=== PATIENT | female | born 1975 | race Caucasian/White ===

== ENCOUNTER 2018-12-17 12:40 | Emergency (ER) | payer OTHER ==
[~2018-12-17] VITALS: Ht 157.5 cm; Wt 47.6 kg
[~2018-12-17 12:40] MED LIST: ACET325; ALBU90OI; ALBU90OI INH; ALBU90OI6 INH; ALBU90OI61 INH; ALLEGRA ALLERGY60 MG PO; AZIT250 PO; Afrin15 ML NS; CEFU250 PO; CEPH500 PO; CIPR500 PO; CODACE30; CODGUAEL PO; CRUTCH4 USE; CYCL10 PO; ESCI20; FAMO20 PO; FLUSAL2505 IH; FLUT.05NI; HYDACE5 PO; HYDACE7.5; HYDGUAL120 PO; HYDMOR2 PO; IBUP200; IBUP400 PO; IBUP800 PO; LEVFLO500 PO; META800 PO; METO10 PO; MULVITMINE PO; Monodox100 MG PO; NAPR500; NAPR500 PO; NITR100CA PO; Naprosyn500 MG PO; Norco 5-325 Ta1 EACH PO; ONDA4 PO; ONDA4ODT MM; OXYACE5T PO; OXYACE7.5T PO; PENNAL50 PO; POLY17UD PO; PRED20 PO; PRED5 PO; PROM12.5S PR; PROM25 PO; PROM25S PR; ROFE25; RXCYCL10 PO; RXHYDACE PO; RXHYDMOR2 PO; RXOXYACE PO; RXPROACE PO; RXPROM25S PR; SERT50 PO; SUMA25 PO; ZOLP5; Zithromax250 MG PO; [UNRECOGNIZED DRUG - REMARK]
[2018-12-17 15:00] LABS: BASOPHILS ABSOLUTE AUTO 0.03 K/mm3 (0.00-0.23); BASOPHILS PERCENT AUTO 1 % (0-2); EOSINOPHILS ABSOLUTE AUTO 0.05 K/mm3 (0.00-0.68); EOSINOPHILS PERCENT AUTO 1 % (0-6); Hematocrit 38.6 % (33.0-51.0); Hemoglobin 12.2 g/dL (11.5-16.0); IMMATURE GRAN ABSOLUTE AUTO 0.01 K/mm3 (0.00-0.10); IMMATURE GRAN PERCENT AUTO 0 % (0-1); LYMPHOCYTES ABSOLUTE AUTO 2.56 K/mm3 (0.84-5.20); LYMPHOCYTES PERCENT AUTO 42 % (21-46); MONOCYTES ABSOLUTE AUTO 0.47 K/mm3 (0.16-1.47); MONOCYTES PERCENT AUTO 8 % (4-13); Mean Corpuscular HGB 29.9 pg (26.0-34.0); Mean Corpuscular HGB Conc 31.6 g/dL (31.5-36.5); Mean Corpuscular Volume 95 fL (80-100); Mean Platelet Volume 11.2 fL (9.1-12.4); NEUTROPHILS ABSOLUTE AUTO 3.05 K/mm3 (1.96-9.15); NEUTROPHILS PERCENT AUTO 49 % (41-73); Platelet Count 252 K/mm3 (150-400); RDW Coefficient Variation 11.9 % (11.7-14.2); RDW Standard Deviation 41.7 fL (35.1-46.3); Red Blood Cell Count 4.08 M/mm3 (3.80-5.20); White Blood Cell Count 6.17 K/mm3 (4.00-11.30)
[2018-12-17 15:15] LABS: Alanine Aminotransfer (ALT/SGP 20 U/L (12-78); Albumin, Blood 3.6 g/dL (3.4-5.0); Alk Phos 52 U/L (50-136); Anion Gap 8 mmol/L (6-16); Aspartate Aminotrans (AST/SGOT 16 U/L (12-37); Bilirubin, Total 0.5 mg/dL (0.1-1.0); Blood Urea Nitrogen 7 mg/dL (8-24); Bun/Creatinine Ratio 17.5 (12.0-20.0); CO2, Blood 26 mmol/L (21-32); Calcium, Blood 8.7 mg/dL (8.5-10.1); Chloride, Blood 105 mmol/L (98-108); Globulin, Blood 3.7 g/dL (2.2-4.0); Glomerular Filtration Rate >60 (60-); Glucose, Blood 94 mg/dL (70-99); Potassium, Blood 4.3 mmol/L (3.5-5.5); Sodium, Blood 139 mmol/L (136-145); Total Protein, Blood 7.3 g/dL (6.4-8.2)
[2018-12-17] MEDS ORDERED: MIRALAX17 GM PO (16:48)
[2018-12-17] MEDS ORDERED: IBUP400 PO (16:48)
== END 2018-12-17 18:00 | disposition home or self-care (01) ==
LOC: ER 12:40
PROVIDERS: Emergency Medicine
DX: K59.00 Constipation, unspecified (principal); Z88.8 Allergy status to other drugs, medicaments and biological substances; Z88.5 Allergy status to narcotic agent; Z88.0 Allergy status to penicillin; Z88.1 Allergy status to other antibiotic agents; F17.210 Nicotine dependence, cigarettes, uncomplicated
CPT/HCPCS: 74177; 80053; 84702; 85025; 96361-59; 96374-59; 96375-59; 99284-25; J1200; J2765; J7120; Q9967

== ENCOUNTER 2019-05-21 18:52 | Emergency (ER) | payer OTHER ==
[~2019-05-21] VITALS: Ht 162.6 cm; Wt 54.4 kg
[~2019-05-21 18:52] MED LIST changes: +MIRALAX17 GM PO
[2019-05-21 19:09] LABS: BASOPHILS ABSOLUTE AUTO 0.04 K/mm3 (0.00-0.23); BASOPHILS PERCENT AUTO 1 % (0-2); EOSINOPHILS ABSOLUTE AUTO 0.13 K/mm3 (0.00-0.68); EOSINOPHILS PERCENT AUTO 2 % (0-6); Hematocrit 33.7 % (33.0-51.0); IMMATURE GRAN ABSOLUTE AUTO 0.02 K/mm3 (0.00-0.10); IMMATURE GRAN PERCENT AUTO 0 % (0-1); LYMPHOCYTES ABSOLUTE AUTO 2.27 K/mm3 (0.84-5.20); LYMPHOCYTES PERCENT AUTO 28 % (21-46); MONOCYTES ABSOLUTE AUTO 0.65 K/mm3 (0.16-1.47); MONOCYTES PERCENT AUTO 8 % (4-13); Mean Corpuscular HGB 30.8 pg (26.0-34.0); Mean Corpuscular HGB Conc 32.6 g/dL (31.5-36.5); Mean Corpuscular Volume 94 fL (80-100); NEUTROPHILS ABSOLUTE AUTO 5.09 K/mm3 (1.96-9.15); NEUTROPHILS PERCENT AUTO 62 % (41-73); Platelet Count 243 K/mm3 (150-400); RDW Coefficient Variation 13.4 % (11.7-14.2); RDW Standard Deviation 46.7 fL (35.1-46.3); Red Blood Cell Count 3.57 M/mm3 (3.80-5.20)
[2019-05-21 19:25] LABS: International Normalized Ratio 0.94
[2019-05-21 19:31] LABS: Alanine Aminotransfer (ALT/SGP 20 U/L (12-78); Albumin, Blood 3.7 g/dL (3.4-5.0); Albumin/Globulin Ratio 1.2 (0.8-1.8); Alk Phos 74 U/L (50-136); Anion Gap 6 mmol/L (6-16); Aspartate Aminotrans (AST/SGOT 21 U/L (12-37); Bilirubin, Total 0.2 mg/dL (0.1-1.0); Blood Urea Nitrogen 13 mg/dL (8-24); Bun/Creatinine Ratio 27.7 (12.0-20.0); CO2, Blood 24 mmol/L (21-32); Calcium, Blood 8.7 mg/dL (8.5-10.1); Chloride, Blood 111 mmol/L (98-108); Creatinine, Blood 0.47 mg/dL (0.40-1.00); Ethanol (Alcohol), Blood, Med <3 mg/dL; Globulin, Blood 3.2 g/dL (2.2-4.0); Glomerular Filtration Rate >60 (60-); Glucose, Blood 104 mg/dL (70-99); Potassium, Blood 3.6 mmol/L (3.5-5.5); Sodium, Blood 141 mmol/L (136-145); Total Protein, Blood 6.9 g/dL (6.4-8.2)
[2019-05-21] MEDS ORDERED: ONDA4ODT MM (20:09)
[2019-05-21] MEDS ORDERED: PRAZ1 PO (20:10)
== END 2019-05-21 21:11 | disposition home or self-care (01) ==
LOC: ER 18:52
PROVIDERS: Emergency Medicine
DX: S30.0XXA Contusion of lower back and pelvis, initial encounter (principal); S10.93XA Contusion of unspecified part of neck, initial encounter; S20.229A Contusion of unspecified back wall of thorax, initial encounter; N83.11 Corpus luteum cyst of right ovary; F41.9 Anxiety disorder, unspecified; G43.909 Migraine, unspecified, not intractable, without status migrainosus; J45.909 Unspecified asthma, uncomplicated; F17.210 Nicotine dependence, cigarettes, uncomplicated; Z88.0 Allergy status to penicillin; Z88.5 Allergy status to narcotic agent; Z88.8 Allergy status to other drugs, medicaments and biological substances; Z88.1 Allergy status to other antibiotic agents; Z79.899 Other long term (current) drug therapy; V49.40XA Driver injured in collision with unspecified motor vehicles in traffic accident, initial encounter
CPT/HCPCS: 36415; 71045; 72125; 74177; 80053; 83690; 85025; 85610; 85730; 86850; 86900; 86901; 96374-59; 96375; 99284-25; G0480; J2060; J2270; Q9967

== ENCOUNTER 2020-12-30 01:30 | Emergency (ER) | payer OTHER ==
[~2020-12-30] VITALS: Ht 162.6 cm; Wt 52.2 kg
[~2020-12-30 01:30] MED LIST changes: +PRAZ1 PO
[2020-12-30 03:33] LABS: Source, Urine Clean Catch
[2020-12-30 03:35] LABS: Bilirubin, Urine Neg (Neg); Blood, Urine 2+ (Neg); Glucose Qualitative, Urine Neg (Neg); Ketones, Urine 1+ (Neg); Leukocyte Esterase, Urine 1+ (Neg); Nitrite, Urine Neg (Neg); Protein, Urine 1+ (Neg); Urobilinogen, Urine NORM (Normal)
[2020-12-30 03:36] LABS: Appearance, Urine Hazy (Clear); Color, Urine Yellow (P-Yellow)
[2020-12-30 03:43] LABS: Amorphous Heavy (0-Heavy); Bacteria Few /hpf; Mucus Light (0-Heavy); Red Blood Cells, Urine 0-2 /hpf (0-2); Squamous Epithelial Cells Few /hpf (Few)
[2020-12-30] MEDS ORDERED: CEFP200 PO (04:07)
== END 2020-12-30 04:22 | disposition home or self-care (01) ==
LOC: ER 01:30
PROVIDERS: Emergency Medicine
DX: M54.2 Cervicalgia (principal); R51.9 Headache, unspecified; M25.569 Pain in unspecified knee; J45.909 Unspecified asthma, uncomplicated; F17.210 Nicotine dependence, cigarettes, uncomplicated; Z88.8 Allergy status to other drugs, medicaments and biological substances; Z88.5 Allergy status to narcotic agent; Z88.0 Allergy status to penicillin; Z88.1 Allergy status to other antibiotic agents; Z79.899 Other long term (current) drug therapy
CPT/HCPCS: 70450; 71046; 72125; 81001; 87086; 96372; 99284-25; A9270; J1885

== ENCOUNTER → 2021-03-12 | Outpatient (CLI) | payer OTHER ==
[~2021-03-12] MED LIST changes: +CEFP200 PO; +MAGCIT300 PO
== END | disposition home or self-care (01) ==
LOC: PLD 16:45 → LAB SHORT 16:45
DX: N39.0 Urinary tract infection, site not specified (principal)
CPT/HCPCS: 87077; 87086; 87186

== ENCOUNTER 2021-03-22 15:34 | Emergency (ER) | payer OTHER ==
[~2021-03-22] VITALS: Ht 162.6 cm; Wt 46.7 kg
[~2021-03-22 15:34] MED LIST changes: -MAGCIT300 PO
[2021-03-22 16:11] LABS: BASOPHILS ABSOLUTE AUTO 0.03 K/mm3 (0.00-0.23); BASOPHILS PERCENT AUTO 1 % (0-2); EOSINOPHILS ABSOLUTE AUTO 0.07 K/mm3 (0.00-0.68); EOSINOPHILS PERCENT AUTO 1 % (0-6); Hematocrit 36.6 % (33.0-51.0); Hemoglobin 11.8 g/dL (11.5-16.0); IMMATURE GRAN ABSOLUTE AUTO 0.01 K/mm3 (0.00-0.10); IMMATURE GRAN PERCENT AUTO 0 % (0-1); LYMPHOCYTES ABSOLUTE AUTO 2.56 K/mm3 (0.84-5.20); LYMPHOCYTES PERCENT AUTO 47 % (21-46); MONOCYTES ABSOLUTE AUTO 0.46 K/mm3 (0.16-1.47); MONOCYTES PERCENT AUTO 9 % (4-13); Mean Corpuscular HGB 28.4 pg (26.0-34.0); Mean Corpuscular HGB Conc 32.2 g/dL (31.5-36.5); Mean Corpuscular Volume 88 fL (80-100); Mean Platelet Volume 10.3 fL (9.1-12.4); NEUTROPHILS ABSOLUTE AUTO 2.29 K/mm3 (1.96-9.15); NEUTROPHILS PERCENT AUTO 42 % (41-73); Platelet Count 271 K/mm3 (150-400); RDW Coefficient Variation 14.1 % (11.7-14.2); RDW Standard Deviation 45.3 fL (35.1-46.3); Red Blood Cell Count 4.16 M/mm3 (3.80-5.20); White Blood Cell Count 5.42 K/mm3 (4.00-11.30)
[2021-03-22 16:22] LABS: Alanine Aminotransfer (ALT/SGP 28 U/L (12-78); Albumin, Blood 3.9 g/dL (3.4-5.0); Albumin/Globulin Ratio 1.1 (0.8-1.8); Alk Phos 59 U/L (50-136); Anion Gap 7 mmol/L (6-16); Aspartate Aminotrans (AST/SGOT 33 U/L (12-37); Bilirubin, Total 0.4 mg/dL (0.1-1.0); Blood Urea Nitrogen 12 mg/dL (8-24); Bun/Creatinine Ratio 17.1 (12.0-20.0); CO2, Blood 24 mmol/L (21-32); Calcium, Blood 8.9 mg/dL (8.5-10.1); Chloride, Blood 102 mmol/L (98-108); Globulin, Blood 3.6 g/dL (2.2-4.0); Glomerular Filtration Rate >60 (60-); Glucose, Blood 160 mg/dL (70-99); Potassium, Blood 3.5 mmol/L (3.5-5.5); Sodium, Blood 133 mmol/L (136-145); Total Protein, Blood 7.5 g/dL (6.4-8.2)
[2021-03-22 17:38] LABS: Source, Urine Clean Catch
[2021-03-22 17:44] LABS: Bilirubin, Urine Neg (Neg); Blood, Urine 1+ (Neg); Glucose Qualitative, Urine Neg (Neg); Ketones, Urine Neg (Neg); Leukocyte Esterase, Urine 1+ (Neg); Nitrite, Urine Neg (Neg); Protein, Urine 1+ (Neg); Urobilinogen, Urine NORM (Normal)
[2021-03-22 17:50] LABS: Appearance, Urine Hazy (Clear); Color, Urine Yellow (P-Yellow)
[2021-03-22 17:51] LABS: Bacteria Mod /hpf; Red Blood Cells, Urine 0-2 /hpf (0-2); Squamous Epithelial Cells Mod /hpf (Few); White Blood Cells, Urine 0-2 /hpf (0-5)
[2021-03-22] MEDS ORDERED: MAGCIT300 PO (18:09)
== END 2021-03-22 18:21 | disposition home or self-care (01) ==
LOC: ER 15:34
PROVIDERS: Physician Assistant
DX: N39.0 Urinary tract infection, site not specified (principal); K59.00 Constipation, unspecified; F17.210 Nicotine dependence, cigarettes, uncomplicated; Z88.4 Allergy status to anesthetic agent; Z88.0 Allergy status to penicillin; Z88.1 Allergy status to other antibiotic agents; Z88.8 Allergy status to other drugs, medicaments and biological substances; Z79.899 Other long term (current) drug therapy
CPT/HCPCS: 74176; 80053; 81001; 83690; 85025; 87086; 99284-25

== ENCOUNTER 2021-07-24 19:30 | Emergency (ER) | payer OTHER ==
[~2021-07-24] VITALS: Ht 162.6 cm; Wt 49.9 kg
[~2021-07-24 19:30] MED LIST changes: +MAGCIT300 PO; +SULTRIDS PO
[2021-07-24 23:51] LABS: BASOPHILS ABSOLUTE AUTO 0.04 K/mm3 (0.00-0.23); BASOPHILS PERCENT AUTO 1 % (0-2); EOSINOPHILS ABSOLUTE AUTO 0.17 K/mm3 (0.00-0.68); EOSINOPHILS PERCENT AUTO 3 % (0-6); Hematocrit 29.4 % (33.0-51.0); Hemoglobin 9.8 g/dL (11.5-16.0); IMMATURE GRAN ABSOLUTE AUTO 0.01 K/mm3 (0.00-0.10); IMMATURE GRAN PERCENT AUTO 0 % (0-1); LYMPHOCYTES ABSOLUTE AUTO 2.35 K/mm3 (0.84-5.20); LYMPHOCYTES PERCENT AUTO 35 % (21-46); MONOCYTES ABSOLUTE AUTO 0.65 K/mm3 (0.16-1.47); MONOCYTES PERCENT AUTO 10 % (4-13); Mean Corpuscular HGB 29.2 pg (26.0-34.0); Mean Corpuscular HGB Conc 33.3 g/dL (31.5-36.5); Mean Corpuscular Volume 88 fL (80-100); Mean Platelet Volume 10.6 fL (9.1-12.4); NEUTROPHILS ABSOLUTE AUTO 3.41 K/mm3 (1.96-9.15); NEUTROPHILS PERCENT AUTO 51 % (41-73); Platelet Count 203 K/mm3 (150-400); RDW Coefficient Variation 13.2 % (11.7-14.2); Red Blood Cell Count 3.36 M/mm3 (3.80-5.20); White Blood Cell Count 6.63 K/mm3 (4.00-11.30)
[2021-07-25 00:08] LABS: Alanine Aminotransfer (ALT/SGP 31 U/L (12-78); Albumin/Globulin Ratio 0.8 (0.8-1.8); Alk Phos 57 U/L (50-136); Anion Gap 5 mmol/L (6-16); Aspartate Aminotrans (AST/SGOT 19 U/L (12-37); Bilirubin, Total 0.3 mg/dL (0.1-1.0); Blood Urea Nitrogen 7 mg/dL (8-24); Bun/Creatinine Ratio 12.2 (12.0-20.0); CO2, Blood 25 mmol/L (21-32); Calcium, Blood 9.2 mg/dL (8.5-10.1); Chloride, Blood 110 mmol/L (98-108); Creatinine, Blood 0.57 mg/dL (0.40-1.00); Globulin, Blood 3.6 g/dL (2.2-4.0); Glomerular Filtration Rate >60 (60-); Glucose, Blood 94 mg/dL (70-99); Potassium, Blood 3.2 mmol/L (3.5-5.5); Sodium, Blood 140 mmol/L (136-145); Total Protein, Blood 6.6 g/dL (6.4-8.2)
== END 2021-07-25 01:20 | disposition home or self-care (01) ==
LOC: ER 19:30
PROVIDERS: Physician Assistant
DX: R33.9 Retention of urine, unspecified (principal); N81.4 Uterovaginal prolapse, unspecified; J45.909 Unspecified asthma, uncomplicated; G43.909 Migraine, unspecified, not intractable, without status migrainosus; F17.210 Nicotine dependence, cigarettes, uncomplicated; Z88.0 Allergy status to penicillin; Z88.1 Allergy status to other antibiotic agents; Z88.8 Allergy status to other drugs, medicaments and biological substances; Z79.899 Other long term (current) drug therapy
CPT/HCPCS: 36415; 51702; 51798; 80053; 85025; 96374; 96375; 99284-25; J2270; J2405

== ENCOUNTER 2021-11-08 21:30 | Emergency (ER) | payer OTHER ==
[~2021-11-08] VITALS: Ht 162.6 cm; Wt 49.9 kg
[2021-11-09] MEDS ORDERED: IBUP400 PO (01:41)
== END 2021-11-09 02:00 | disposition home or self-care (01) ==
LOC: ER 21:30
DX: S02.31XA Fracture of orbital floor, right side, initial encounter for closed fracture (principal); S02.40DA Maxillary fracture, left side, initial encounter for closed fracture; F17.210 Nicotine dependence, cigarettes, uncomplicated; J45.909 Unspecified asthma, uncomplicated; Z88.0 Allergy status to penicillin; Z88.8 Allergy status to other drugs, medicaments and biological substances; Z88.5 Allergy status to narcotic agent; Y04.8XXA Assault by other bodily force, initial encounter
CPT/HCPCS: 70486; 72125; 99284-25

== ENCOUNTER 2022-11-29 01:13 | Emergency (ER) | payer OTHER ==
[~2022-11-29] VITALS: Ht 167.6 cm; Wt 63.5 kg
[~2022-11-29 01:13] MED LIST changes: +Bactrim Ds Tab1 EACH PO
== END 2022-11-29 02:45 | disposition home or self-care (01) ==
LOC: ER 01:13
DX: S60.212A Contusion of left wrist, initial encounter (principal); S50.12XA Contusion of left forearm, initial encounter; S54.02XA Injury of ulnar nerve at forearm level, left arm, initial encounter; F17.210 Nicotine dependence, cigarettes, uncomplicated; Y04.0XXA Assault by unarmed brawl or fight, initial encounter; Z88.5 Allergy status to narcotic agent; Z88.8 Allergy status to other drugs, medicaments and biological substances; Z88.0 Allergy status to penicillin; Z79.899 Other long term (current) drug therapy
CPT/HCPCS: 29125; 73090; 73120; 99283-25; A9270; L3917

== ENCOUNTER 2023-06-11 23:05 | Emergency (ER) | payer OTHER ==
[~2023-06-11] VITALS: Ht 162.6 cm; Wt 49.0 kg
[2023-06-12 04:18] VITALS: BP 108/70
[2023-06-14] MEDS ORDERED: CEPH500 PO (18:54)
== END 2023-06-12 06:30 | disposition home or self-care (01) ==
LOC: ER 23:05
DX: N81.4 Uterovaginal prolapse, unspecified (principal); R10.13 Epigastric pain; R11.0 Nausea; Z88.8 Allergy status to other drugs, medicaments and biological substances; Z88.0 Allergy status to penicillin; Z88.5 Allergy status to narcotic agent; Z79.899 Other long term (current) drug therapy; G43.909 Migraine, unspecified, not intractable, without status migrainosus; J45.909 Unspecified asthma, uncomplicated; F17.210 Nicotine dependence, cigarettes, uncomplicated
CPT/HCPCS: 51702; 51798; 93005; 93010; 96374-59; 96375; 96376; 99285-25; A9270; J1170; J1790

== ENCOUNTER 2023-06-13 14:21 | Emergency (ER) | payer OTHER ==
[~2023-06-13] VITALS: Ht 162.6 cm; Wt 40.8 kg
[2023-06-13 14:26] VITALS: BP 104/66
[2023-06-13 15:05] LABS: BASOPHILS ABSOLUTE AUTO 0.03 K/mm3 (0.00-0.23); BASOPHILS PERCENT AUTO 0 % (0-2); EOSINOPHILS ABSOLUTE AUTO 0.01 K/mm3 (0.00-0.68); EOSINOPHILS PERCENT AUTO 0 % (0-6); Hematocrit 31.7 % (33.0-51.0); Hemoglobin 10.4 g/dL (11.5-16.0); IMMATURE GRAN ABSOLUTE AUTO 0.06 K/mm3 (0.00-0.10); IMMATURE GRAN PERCENT AUTO 1 % (0-1); LYMPHOCYTES ABSOLUTE AUTO 0.82 K/mm3 (0.84-5.20); LYMPHOCYTES PERCENT AUTO 7 % (21-46); MONOCYTES ABSOLUTE AUTO 1.02 K/mm3 (0.16-1.47); MONOCYTES PERCENT AUTO 8 % (4-13); Mean Corpuscular HGB Conc 32.8 g/dL (31.5-36.5); Mean Corpuscular Volume 85 fL (80-100); Mean Platelet Volume 9.8 fL (9.1-12.4); NEUTROPHILS PERCENT AUTO 84 % (41-73); Platelet Count 212 K/mm3 (150-400); RDW Coefficient Variation 14.3 % (11.7-14.2); RDW Standard Deviation 44.4 fL (35.1-46.3); Red Blood Cell Count 3.71 M/mm3 (3.80-5.20); White Blood Cell Count 12.24 K/mm3 (4.00-11.30)
[2023-06-13 15:30] LABS: Albumin, Blood 2.6 g/dL (3.4-5.0); Albumin/Globulin Ratio 0.7 (0.8-1.8); Bilirubin, Total 0.5 mg/dL (0.1-1.0); Bun/Creatinine Ratio 14.7 (12.0-20.0); Calcium, Blood 8.5 mg/dL (8.5-10.1); Creatinine, Blood 0.61 mg/dL (0.40-1.00); Globulin, Blood 3.7 g/dL (2.2-4.0); Potassium, Blood 3.3 mmol/L (3.5-5.5); Total Protein, Blood 6.3 g/dL (6.4-8.2)
[2023-06-14] MEDS ORDERED: CEPH500 PO (18:54)
== END 2023-06-13 17:06 | disposition left against medical advice (07) ==
LOC: ER 14:21
PROVIDERS: Student in an Organized Health Care Education/Training Program
DX: R10.9 Unspecified abdominal pain (principal); Z53.21 Procedure and treatment not carried out due to patient leaving prior to being seen by health care provider; J45.909 Unspecified asthma, uncomplicated; Z88.8 Allergy status to other drugs, medicaments and biological substances; Z88.0 Allergy status to penicillin; Z88.5 Allergy status to narcotic agent
CPT/HCPCS: 80053; 83690; 85025

== ENCOUNTER → 2023-06-14 10:56 | Emergency (ER) | payer OTHER ==
[~2023-06-14] VITALS: Ht 162.6 cm; Wt 49.0 kg
[2023-06-14 12:17] LABS: BASOPHILS ABSOLUTE AUTO 0.03 K/mm3 (0.00-0.23); BASOPHILS PERCENT AUTO 0 % (0-2); EOSINOPHILS ABSOLUTE AUTO 0.01 K/mm3 (0.00-0.68); EOSINOPHILS PERCENT AUTO 0 % (0-6); Hematocrit 31.1 % (33.0-51.0); Hemoglobin 10.6 g/dL (11.5-16.0); IMMATURE GRAN ABSOLUTE AUTO 0.03 K/mm3 (0.00-0.10); IMMATURE GRAN PERCENT AUTO 0 % (0-1); LYMPHOCYTES PERCENT AUTO 7 % (21-46); MONOCYTES ABSOLUTE AUTO 1.08 K/mm3 (0.16-1.47); MONOCYTES PERCENT AUTO 10 % (4-13); Mean Corpuscular HGB 28.7 pg (26.0-34.0); Mean Corpuscular HGB Conc 34.1 g/dL (31.5-36.5); Mean Corpuscular Volume 84 fL (80-100); NEUTROPHILS ABSOLUTE AUTO 8.88 K/mm3 (1.96-9.15); NEUTROPHILS PERCENT AUTO 83 % (41-73); Platelet Count 196 K/mm3 (150-400); RDW Coefficient Variation 14.2 % (11.7-14.2); RDW Standard Deviation 44.3 fL (35.1-46.3); Red Blood Cell Count 3.69 M/mm3 (3.80-5.20); White Blood Cell Count 10.73 K/mm3 (4.00-11.30)
[2023-06-14 12:35] LABS: Albumin, Blood 2.5 g/dL (3.4-5.0); Albumin/Globulin Ratio 0.7 (0.8-1.8); Bilirubin, Total 0.3 mg/dL (0.1-1.0); Bun/Creatinine Ratio 19.9 (12.0-20.0); Calcium, Blood 8.3 mg/dL (8.5-10.1); Creatinine, Blood 0.6 mg/dL (0.40-1.00); Globulin, Blood 3.8 g/dL (2.2-4.0); Total Protein, Blood 6.3 g/dL (6.4-8.2)
[2023-06-14 14:53] LABS: Source, Urine Foley catheter
[2023-06-14 14:58] LABS: Appearance, Urine Cloudy (Clear); Bilirubin, Urine Neg (Neg); Blood, Urine 4+ (Neg); Color, Urine Yellow (P-Yellow); Glucose Qualitative, Urine Neg (Neg); Ketones, Urine Neg (Neg); Leukocyte Esterase, Urine 3+ (Neg); Nitrite, Urine Pos (Neg); Protein, Urine 3+ (Neg); Specific Gravity, Urine 1.005 (1.003-1.022); Urobilinogen, Urine NORM (Normal)
[2023-06-14 15:11] LABS: Bacteria Many /hpf; Red Blood Cells, Urine 50-100 /hpf (0-2); Squamous Epithelial Cells Not Seen /hpf (Few); White Blood Cells, Urine TNTC /hpf (0-5)
[2023-06-14 15:36] VITALS: BP 107/64
== END | disposition home or self-care (01) ==
LOC: ER 10:56
PROVIDERS: Emergency Medicine; Student in an Organized Health Care Education/Training Program
DX: N39.0 Urinary tract infection, site not specified (principal); R00.0 Tachycardia, unspecified; F17.210 Nicotine dependence, cigarettes, uncomplicated; Z88.0 Allergy status to penicillin; Z88.5 Allergy status to narcotic agent; Z88.8 Allergy status to other drugs, medicaments and biological substances
CPT/HCPCS: 51702; 80053; 81001; 83605; 85025; 87077; 87086; 87186; 99284; A9270; J0696; J2270; J7030

== ENCOUNTER 2023-07-08 11:15 | Inpatient (IN) | payer OTHER ==
[~2023-07-08] VITALS: Ht 162.6 cm; Wt 49.9 kg
[2023-07-08 11:49] LABS: BASOPHILS ABSOLUTE AUTO 0.04 K/mm3 (0.00-0.23); BASOPHILS PERCENT AUTO 0 % (0-2); EOSINOPHILS ABSOLUTE AUTO 0.01 K/mm3 (0.00-0.68); EOSINOPHILS PERCENT AUTO 0 % (0-6); Hematocrit 35.8 % (33.0-51.0); Hemoglobin 11.7 g/dL (11.5-16.0); IMMATURE GRAN ABSOLUTE AUTO 0.24 K/mm3 (0.00-0.10); IMMATURE GRAN PERCENT AUTO 1 % (0-1); LYMPHOCYTES ABSOLUTE AUTO 0.89 K/mm3 (0.84-5.20); LYMPHOCYTES PERCENT AUTO 4 % (21-46); MONOCYTES ABSOLUTE AUTO 0.76 K/mm3 (0.16-1.47); MONOCYTES PERCENT AUTO 4 % (4-13); Mean Corpuscular HGB 28.4 pg (26.0-34.0); Mean Corpuscular HGB Conc 32.7 g/dL (31.5-36.5); Mean Corpuscular Volume 87 fL (80-100); Mean Platelet Volume 9.9 fL (9.1-12.4); NEUTROPHILS ABSOLUTE AUTO 18.07 K/mm3 (1.96-9.15); NEUTROPHILS PERCENT AUTO 90 % (41-73); Platelet Count 243 K/mm3 (150-400); RDW Coefficient Variation 14.8 % (11.7-14.2); RDW Standard Deviation 47.1 fL (35.1-46.3); Red Blood Cell Count 4.12 M/mm3 (3.80-5.20); White Blood Cell Count 20.01 K/mm3 (4.00-11.30)
[2023-07-08 12:12] LABS: Albumin/Globulin Ratio 0.8 (0.8-1.8); Bilirubin, Total 0.8 mg/dL (0.1-1.0); Bun/Creatinine Ratio 15.5 (12.0-20.0); Calcium, Blood 8.4 mg/dL (8.5-10.1); Creatinine, Blood 0.71 mg/dL (0.40-1.00); Globulin, Blood 3.9 g/dL (2.2-4.0); Total Protein, Blood 6.9 g/dL (6.4-8.2)
[2023-07-08 13:37] LABS: Source, Urine Foley catheter
[2023-07-08 13:42] LABS: Appearance, Urine Turbid (Clear); Bilirubin, Urine Neg (Neg); Blood, Urine 4+ (Neg); Color, Urine Yellow (P-Yellow); Glucose Qualitative, Urine Neg (Neg); Ketones, Urine Neg (Neg); Leukocyte Esterase, Urine 3+ (Neg); Nitrite, Urine Pos (Neg); Protein, Urine 3+ (Neg); Specific Gravity, Urine 1.015 (1.003-1.022); Urobilinogen, Urine NORM (Normal)
[2023-07-08 14:08] LABS: Bacteria Many /hpf; Mucus Light (0-Heavy); Squamous Epithelial Cells Few /hpf (Few); White Blood Cells, Urine TNTC /hpf (0-5)
[2023-07-08 15:32] VITALS: BP 97/71
--- NOTE | 2023-07-08 16:13 | NUR ---
PT ARRIVED ON UNIT AT 1515. ORIENTED TO UNIT AND ROOM. TRANSPORTED VIA GURNEY, TRANSFERED USING SLIDE SHEET TO BED. PT A&OX4 AND LETHARGIC. PT AROUSABLE AND RESTING IN BED. NO COMPLAINTS OR CONCERNS AT THIS TIME. BED BATH GIVEN TO PT.
--- NOTE | 2023-07-08 17:48 | NUR ---
POTASSIUM CHLORIDE INFUSING CONCURRENTLY. PT VERBALIZES PAIN. IV INFUSION RATE REDUCED, PAIN STILL PRESENT. DR READ CALLED AND POTTASIUM CHANGED TO PO AFTER COMPLETION OF FIRST INFUSION DOSE.
--- NOTE | 2023-07-08 18:04 | NUR ---
SHIFT SUMMARY PT A&OX4. PT SOMNOLENT BUT ARROUSABLE WITH VERBAL STIMULATION. PT RECEIVING IV ANTIBIOTICS FOR SUSPECTED INFECTION AND IV/PO POTASSIUM FOR HYPOKALEMIA. BP LOW AND BEING TREATED WITH FLUIDS. NO ACUTE CHANGES OR DISTRESS OBSERVED ON MY SHIFT. PT LEFT IN A POSITION OF SAFETY AND COMFORT WITH BED LOCKED AND IN LOWEST POSITION, NONSKID SOCKS IN PLACE, CALL LIGHT WITHIN REACH
[2023-07-08 20:23] VITALS: BP 99/70
[2023-07-09 04:49] LABS: Hematocrit 31.8 % (33.0-51.0); Mean Corpuscular HGB 27.9 pg (26.0-34.0); Mean Corpuscular HGB Conc 31.4 g/dL (31.5-36.5); Mean Corpuscular Volume 89 fL (80-100); Mean Platelet Volume 10.3 fL (9.1-12.4); Platelet Count 201 K/mm3 (150-400); RDW Standard Deviation 48.1 fL (35.1-46.3); Red Blood Cell Count 3.59 M/mm3 (3.80-5.20); White Blood Cell Count 22.95 K/mm3 (4.00-11.30)
--- NOTE | 2023-07-09 05:06 | NUR ---
SHIFT SUMMARY PT IS A&O4, BEDREST FOR UTERINE PROLAPSE, RA, TYLENOL GIVEN X1 FOR FEVER OVERNIGHT, PRN PAIN MEDICATION GIVEN X3 FOR AB PAIN PER MAR, LUGO PATENT DRAINING TO GRAVITY, CONTINUE POC
[2023-07-09 05:07] LABS: Calcium, Blood 7.9 mg/dL (8.5-10.1); Creatinine, Blood 0.83 mg/dL (0.40-1.00); Potassium, Blood 3.7 mmol/L (3.5-5.5)
[2023-07-09 07:29] VITALS: BP 90/56
[2023-07-09 16:23] VITALS: BP 98/65
--- NOTE | 2023-07-09 17:24 | NUR ---
"Spiritual Care Visit | Pt. Request Pt. is awake in bed and welcomes my visit. Pt. is pleasant. Pt. verbalized the great care she has received in contrast to annamaria e previous visits. This ink blender listend with empathy and a calming presence. Pt. displayed evidence of gratitude and trust. Considered matters of her personal [place] and belief as well as family life review. Prayed with Pt. Pt. erbalized gratitude for the spiritual care visit."
--- NOTE | 2023-07-09 18:32 | NUR ---
SHIFT SUMMARY PT A&OX4, BEDREST FOR UTERINE PROLAPSE, LUGO CATHETER IN PLACE AND PATENT, PAIN MANAGED W/ TYLENOL, DILAUDID, AND FENTANYL. PT CONT TO C/O PAIN T/O SHIFT. PLAN FOR DISCHARGE WEDNESDAY AND PT TO FOLLOW UP W/ OUTPATIENT FOR SURGERY. CALL LIGHT WITHIN REACH AND ABLE TO MAKE NEEDS KNOWN.
[2023-07-09 20:52] VITALS: BP 112/71
[2023-07-10 05:01] LABS: Hematocrit 28.3 % (33.0-51.0); Hemoglobin 9.3 g/dL (11.5-16.0); Mean Corpuscular HGB 28.6 pg (26.0-34.0); Mean Corpuscular HGB Conc 32.9 g/dL (31.5-36.5); Mean Corpuscular Volume 87 fL (80-100); Mean Platelet Volume 10.7 fL (9.1-12.4); Platelet Count 204 K/mm3 (150-400); RDW Coefficient Variation 15.2 % (11.7-14.2); Red Blood Cell Count 3.25 M/mm3 (3.80-5.20); White Blood Cell Count 16.61 K/mm3 (4.00-11.30)
--- NOTE | 2023-07-10 05:01 | NUR ---
SHIFT SUMMARY PT IS A&O4, BEDREST FOR UTERINE PROLAPSE, RA, LUGO PATENT DRAINING TO GRAVITY, PRN PAIN MEDICATION GIVEN X3 PER MAR, NO FEVERS THIS SHIFT, CONTINUE POC
[2023-07-10 05:53] LABS: Bun/Creatinine Ratio 27.3 (12.0-20.0); Calcium, Blood 8.4 mg/dL (8.5-10.1); Creatinine, Blood 0.7 mg/dL (0.40-1.00); Potassium, Blood 3.3 mmol/L (3.5-5.5)
[2023-07-10 07:23] VITALS: BP 98/67
[2023-07-10 15:51] VITALS: BP 118/72
--- NOTE | 2023-07-10 17:11 | NUR ---
SHIFT SUMMARY PT A&OX4, BEDREST FOR UTERINE PROLAPSE, LUGO CATHETER IN PLACE AND PATENT. PAIN MANAGEMENT REGIMEN ADJUSTED BY DR. ROMERO THIS AFTERNOON, SEE MAR. PAIN MANAGED W/ DILAUDID AND NORCO. PT CONT TO C/O PAIN T/O SHIFT. OINTMENT AVAILABLE IN DEC TO KEEP UTERUS MOIST. PLAN TO CONT TO ADMINSTER ABX. CALL LIGHT WITHIN REACH AND PT ABLE TO MAKE NEEDS KNOWN.
[2023-07-10 21:12] VITALS: BP 113/73
--- NOTE | 2023-07-11 04:58 | NUR ---
SHIFT SUMMARY PATIENT A/Ox4, PLEASANT/COOPERATIVE, APPEARS FREQUENTLY ANXIOUS. STATES SHE HAS NIGHT TERRORS. C/O ONGOING INTERMITTENT PAIN TO VAGINAL AREA R/T UTERINE PROLAPSE. PAIN MANAGED WITH ROUTINE AND PRN MEDICATIONS PER MAR. LUGO CATHETER IN PLACE, PATENT DRAINING TO GRAVITY. NO ACUTE CHANGES NOTED OVERNIGHT. BED LOCKED AND IN LOWEST POSITION, CALL LIGHT WITHIN REACH.
[2023-07-11 05:00] VITALS: BP 107/71
[2023-07-11 05:00] LABS: BASOPHILS ABSOLUTE AUTO 0.02 K/mm3 (0.00-0.23); BASOPHILS PERCENT AUTO 0 % (0-2); EOSINOPHILS ABSOLUTE AUTO 0.14 K/mm3 (0.00-0.68); EOSINOPHILS PERCENT AUTO 2 % (0-6); Hematocrit 25.3 % (33.0-51.0); Hemoglobin 8.1 g/dL (11.5-16.0); IMMATURE GRAN ABSOLUTE AUTO 0.07 K/mm3 (0.00-0.10); IMMATURE GRAN PERCENT AUTO 1 % (0-1); LYMPHOCYTES ABSOLUTE AUTO 1.35 K/mm3 (0.84-5.20); LYMPHOCYTES PERCENT AUTO 18 % (21-46); MONOCYTES ABSOLUTE AUTO 0.77 K/mm3 (0.16-1.47); MONOCYTES PERCENT AUTO 10 % (4-13); Mean Corpuscular HGB 27.6 pg (26.0-34.0); Mean Corpuscular Volume 86 fL (80-100); Mean Platelet Volume 10.7 fL (9.1-12.4); NEUTROPHILS ABSOLUTE AUTO 5.28 K/mm3 (1.96-9.15); NEUTROPHILS PERCENT AUTO 69 % (41-73); Platelet Count 188 K/mm3 (150-400); RDW Coefficient Variation 15.2 % (11.7-14.2); RDW Standard Deviation 48.1 fL (35.1-46.3); Red Blood Cell Count 2.93 M/mm3 (3.80-5.20); White Blood Cell Count 7.63 K/mm3 (4.00-11.30)
[2023-07-11 05:41] LABS: Alanine Aminotransfer (ALT/SGP 38 U/L (12-78); Albumin, Blood 1.9 g/dL (3.4-5.0); Albumin/Globulin Ratio 0.5 (0.8-1.8); Alk Phos 87 U/L (50-136); Anion Gap 6 mmol/L (6-16); Aspartate Aminotrans (AST/SGOT 12 U/L (12-37); Bilirubin, Total <0.1 mg/dL (0.1-1.0); Blood Urea Nitrogen 9 mg/dL (8-24); Bun/Creatinine Ratio 14.9 (12.0-20.0); CO2, Blood 26 mmol/L (21-32); Calcium, Blood 8.5 mg/dL (8.5-10.1); Chloride, Blood 104 mmol/L (98-108); Globulin, Blood 3.9 g/dL (2.2-4.0); Glomerular Filtration Rate 111 (60-); Glucose, Blood 100 mg/dL (70-99); Potassium, Blood 3.6 mmol/L (3.5-5.5); Sodium, Blood 136 mmol/L (136-145); Total Protein, Blood 5.8 g/dL (6.4-8.2)
[2023-07-11 07:45] VITALS: BP 110/69
[2023-07-11 15:48] VITALS: BP 110/75
--- NOTE | 2023-07-11 18:15 | NUR ---
SHIFT SUMMARY PT A&OX4, BEDREST FOR UTERINE PROLAPSE, LUGO CATHETER IN PLACE AND PATENT. PT ADMITS PAIN MANAGEMENT IMPROVED THIS SHIFT. PAIN MANAGED W/ NORCO AND DILAUDID. OINTMENT APPLIED THIS SHIFT TO KEEP UTERUS MOIST. CALL LIGHT WITHIN REACH AND PT ABLE TO MAKE NEEDS KNOWN.
[2023-07-11 20:03] VITALS: BP 129/79
[2023-07-12 02:25] VITALS: BP 129/80
--- NOTE | 2023-07-12 04:20 | NUR ---
SHIFT SUMMARY: PT IS ALERT AND ORIENTED. PT IS CALM AND COOPERATIVE WITH CARE. PT IS ON BEDREST. FAMILY IN VISITING AT THE START OF THE SHIFT. PT REPORTS CONTINUING PAIN R/T UTERINE PROLAPSE, MEDICATING PER EMAR. PT DENIES NAUSEA, VOMITING, AND SOB. PT SLEPT MUCH OF THE NIGHT. NO ACUTE CHANGES OR COMPLICATIONS THIS SHIFT. BED IN LOW POSITION, CALL LIGHT WITHIN REACH. WILL CONTINUE TO MONITOR.
[2023-07-12 04:51] LABS: BASOPHILS ABSOLUTE AUTO 0.02 K/mm3 (0.00-0.23); BASOPHILS PERCENT AUTO 0 % (0-2); EOSINOPHILS ABSOLUTE AUTO 0.19 K/mm3 (0.00-0.68); EOSINOPHILS PERCENT AUTO 3 % (0-6); Hematocrit 29.6 % (33.0-51.0); Hemoglobin 9.5 g/dL (11.5-16.0); IMMATURE GRAN ABSOLUTE AUTO 0.02 K/mm3 (0.00-0.10); IMMATURE GRAN PERCENT AUTO 0 % (0-1); LYMPHOCYTES PERCENT AUTO 20 % (21-46); MONOCYTES ABSOLUTE AUTO 0.82 K/mm3 (0.16-1.47); MONOCYTES PERCENT AUTO 15 % (4-13); Mean Corpuscular HGB Conc 32.1 g/dL (31.5-36.5); Mean Corpuscular Volume 87 fL (80-100); NEUTROPHILS ABSOLUTE AUTO 3.39 K/mm3 (1.96-9.15); NEUTROPHILS PERCENT AUTO 61 % (41-73); Platelet Count 200 K/mm3 (150-400); RDW Coefficient Variation 15.3 % (11.7-14.2); RDW Standard Deviation 48.9 fL (35.1-46.3); Red Blood Cell Count 3.39 M/mm3 (3.80-5.20); White Blood Cell Count 5.54 K/mm3 (4.00-11.30)
[2023-07-12 05:18] LABS: Albumin, Blood 2.1 g/dL (3.4-5.0); Albumin/Globulin Ratio 0.5 (0.8-1.8); Bilirubin, Total 0.1 mg/dL (0.1-1.0); Bun/Creatinine Ratio 13.4 (12.0-20.0); Calcium, Blood 8.6 mg/dL (8.5-10.1); Creatinine, Blood 0.6 mg/dL (0.40-1.00); Globulin, Blood 4.1 g/dL (2.2-4.0); Potassium, Blood 3.8 mmol/L (3.5-5.5); Total Protein, Blood 6.2 g/dL (6.4-8.2)
[2023-07-12 07:45] VITALS: BP 115/75
[2023-07-12 13:35] VITALS: BP 136/71
--- NOTE | 2023-07-12 14:23 | NUR ---
CALLED DR ROMERO- PT HAS RECIEVED ALL MEDS FOR BM, HOWEVER SHE HAS STILL HAD NO STOOLS, EVEN AFTER THE ENEMA, ONLY THE ENEMAS WAS PRODUCED IN RETURN. CALLED DR ROMERO PT ABDOMEN IS LARGER AND MORE FIRM, SHE IS C/O INCREASED PAIN WELL.
[2023-07-12 15:50] VITALS: BP 124/80
[2023-07-12 16:12] VITALS: BP 116/70
--- NOTE | 2023-07-12 19:41 | NUR ---
SHIFT SUMMARY- CALLED DR ROEMRO THIS EVENING, ENEMA WAS NOT INFUSING IT SHOULD IT WAS RUNNING BACK IT WAS BEING ADMINISTERED. POTENTIALLY MUCH 1/3 OF THE ENEMA MAY HAVE BEEN RETAINED INTENDED. ORDER TO HOLD THE SECOND ENEMA. PT DID HAVE A LARGE AMOUNT OF FLATUS PASSED ABOUT A HALF AN HOUR AFTER THE ENEMA. NO STOOL. BED CHANGE PERFORMED TO CLEAN ALL THE MEDICATION FROM THE LINNENS. PT IN BED, MEDICATED FOR PAIN AND STATES IT "SEEMS TO BE WORKING" PAIN IS MANAGED BETTER THIS EVENING WHEN COMPARED TO LATE THIS AFTERNOON. PASSING THE FLATTUS SEEMED TO HELP A LOT. PT IN BED, CALL LIGHT IN REACH NO S&S OF DISTRESS NOTED, BEDSIDE REPORT COMPLETED WITH NIGHT RN, NO S&S OF DISTRESS NOTED. PT ABLE TO LAUGH AND TALK WITH STAFF.
[2023-07-12 20:34] VITALS: BP 149/91
[2023-07-13 02:42] VITALS: BP 128/87
[2023-07-13 05:09] LABS: BASOPHILS ABSOLUTE AUTO 0.02 K/mm3 (0.00-0.23); BASOPHILS PERCENT AUTO 0 % (0-2); EOSINOPHILS ABSOLUTE AUTO 0.08 K/mm3 (0.00-0.68); EOSINOPHILS PERCENT AUTO 2 % (0-6); Hematocrit 30.9 % (33.0-51.0); IMMATURE GRAN ABSOLUTE AUTO 0.01 K/mm3 (0.00-0.10); IMMATURE GRAN PERCENT AUTO 0 % (0-1); LYMPHOCYTES ABSOLUTE AUTO 1.08 K/mm3 (0.84-5.20); LYMPHOCYTES PERCENT AUTO 23 % (21-46); MONOCYTES ABSOLUTE AUTO 0.49 K/mm3 (0.16-1.47); MONOCYTES PERCENT AUTO 11 % (4-13); Mean Corpuscular HGB 27.8 pg (26.0-34.0); Mean Corpuscular HGB Conc 32.4 g/dL (31.5-36.5); Mean Corpuscular Volume 86 fL (80-100); Mean Platelet Volume 10.1 fL (9.1-12.4); NEUTROPHILS ABSOLUTE AUTO 2.98 K/mm3 (1.96-9.15); NEUTROPHILS PERCENT AUTO 64 % (41-73); Platelet Count 227 K/mm3 (150-400); RDW Coefficient Variation 15.2 % (11.7-14.2); RDW Standard Deviation 48.4 fL (35.1-46.3); White Blood Cell Count 4.66 K/mm3 (4.00-11.30)
[2023-07-13 05:39] LABS: Albumin, Blood 2.3 g/dL (3.4-5.0); Albumin/Globulin Ratio 0.5 (0.8-1.8); Bilirubin, Total 0.2 mg/dL (0.1-1.0); Bun/Creatinine Ratio 13.2 (12.0-20.0); Calcium, Blood 8.9 mg/dL (8.5-10.1); Creatinine, Blood 0.61 mg/dL (0.40-1.00); Globulin, Blood 4.2 g/dL (2.2-4.0); Potassium, Blood 4.1 mmol/L (3.5-5.5); Total Protein, Blood 6.5 g/dL (6.4-8.2)
--- NOTE | 2023-07-13 06:25 | NUR ---
SHIFT SUMMARY PATIENT A/Ox4, PLEASANT AND COOPERATIVE. C/O ONGOING INTERMITTENT PAIN TO LOWER ABD, R/T UTERINE PROLAPSE. PAIN MANAGED WITH ROUTINE AND PRN MEDICATIONS PER MAR. LUGO CATHETER IN PLACE, PATENT DRAINING TO GRAVITY, CLEAR YELLOW URINE. NO ACUTE CHANGES NOTED OVERNIGHT. BED LOCKED AND IN LOWEST POSITION, CALL LIGHT WITHIN REACH.
[2023-07-13 07:23] VITALS: BP 132/99
[2023-07-13 17:54] VITALS: BP 127/76
--- NOTE | 2023-07-13 18:20 | NUR ---
SHIFT SUMMARY PT A&OX4. VSS. PT ENCOURAGED TO AMBULATE TO PROMOTE GI MOTILITY. PT DECLINES DURING SHIFT DUE TO UNCONTROLLED PAIN AND SLEEPING. NO ACUTE CHANGES TO PT CONDITION, BM PRODUCED THIS MORNING. PT LEFT IN A POSITION OF SAFETY WITH BED LOCKED AND IN LOWEST POSITION, NONSKID SOCKS IN PLACE, BED RAILS RAISED X2, FLOOR CLEAR OF DEBRIS, AND CALL LIGHT WITHIN REACH.
--- NOTE | 2023-07-14 04:20 | NUR ---
SHIFT SUMMARY PATIENT A/Ox4, BRIGHT AFFECT AT SHIFT CHANGE, SMILING. CONTINUES TO STRUGGLE WITH FREQUENT INTENSE PAIN TO LOWER ABD, R/T UTERINE PROLAPSE. PAIN MANAGED WITH ROUTINE AND PRN MEDICATIONS PER DEC. LUGO CATHETER IN PLACE, PATENT DRAINING TO GRAVITY, CLEAR LIGHT YELLOW URINE. NO ACUTE CHANGES NOTED OVERNIGHT. BED LOCKED AND IN LOWEST POSITION, CALL LIGHT WITHIN REACH.
[2023-07-14 04:31] VITALS: BP 122/95
[2023-07-14 05:04] LABS: BASOPHILS ABSOLUTE AUTO 0.03 K/mm3 (0.00-0.23); BASOPHILS PERCENT AUTO 1 % (0-2); EOSINOPHILS PERCENT AUTO 3 % (0-6); Hemoglobin 9.5 g/dL (11.5-16.0); IMMATURE GRAN ABSOLUTE AUTO 0.03 K/mm3 (0.00-0.10); IMMATURE GRAN PERCENT AUTO 1 % (0-1); LYMPHOCYTES ABSOLUTE AUTO 1.64 K/mm3 (0.84-5.20); LYMPHOCYTES PERCENT AUTO 27 % (21-46); MONOCYTES ABSOLUTE AUTO 0.74 K/mm3 (0.16-1.47); MONOCYTES PERCENT AUTO 12 % (4-13); Mean Corpuscular HGB 28.1 pg (26.0-34.0); Mean Corpuscular HGB Conc 32.8 g/dL (31.5-36.5); Mean Corpuscular Volume 86 fL (80-100); Mean Platelet Volume 9.9 fL (9.1-12.4); NEUTROPHILS ABSOLUTE AUTO 3.39 K/mm3 (1.96-9.15); NEUTROPHILS PERCENT AUTO 56 % (41-73); Platelet Count 260 K/mm3 (150-400); RDW Coefficient Variation 14.9 % (11.7-14.2); RDW Standard Deviation 47.3 fL (35.1-46.3); Red Blood Cell Count 3.38 M/mm3 (3.80-5.20); White Blood Cell Count 6.03 K/mm3 (4.00-11.30)
[2023-07-14 05:29] LABS: Bun/Creatinine Ratio 15.7 (12.0-20.0); Calcium, Blood 8.4 mg/dL (8.5-10.1); Creatinine, Blood 0.64 mg/dL (0.40-1.00); Potassium, Blood 4.1 mmol/L (3.5-5.5)
[2023-07-14 07:08] VITALS: BP 113/72
[2023-07-14 14:49] VITALS: BP 128/79
--- NOTE | 2023-07-14 18:53 | NUR ---
SHIFT SUMMARY A&O X 4, VSS. PT C/O LOW ABD PAIN THROUGHOUT SHIFT WITH MOD RELIEF STATED WITH PAIN MEDS PER EMAR. THIS AFTERNOON PT C/O OF GAS PAINS. MEDICATED WITH PAIN MEDS WITH MOD RELIEF STATED BY PT. PT REFUSED EVENING DOSE OF LACTULOSE STATING IT CAUSES THE GAS PAINS. IS PLEASANT & COOPERATIVE WITH ALL CARE. IS INDEPENDENT FOR BSC USE. HAS RESTED QUIETLY IN DARK ROOM. CAN BE HEARD MOANING IN THE ROOM, PT STATES ITS FROM THE GAS MOVING. F/C WITH LIGHT YELLOW URINE, IS INTACT & PATENT TO GRAVITY DRNG.
[2023-07-14 20:54] VITALS: BP 132/79
[2023-07-15 01:51] VITALS: BP 138/76
--- NOTE | 2023-07-15 04:11 | NUR ---
SHIFT SUMMERY. PT AT THIS TIME RESTING IN BED. PT HAS IN LUGO CATH. PT LAST NOC HAD LG BM AND WAS GIVEN A SHOWER DUE TO STOOL ON PROLAPSED UTERUS. PT BACK TO BED CLEAN CLOTHING PLACED ON PT AND PT MEDICATED FOR PAIN. PT HAS ANOTHER 2 LIQ BMS AFTER TAHT AND WAS AGAIN CLEANDED UP PT WAS STILL VERY PAIN FULL AND MEDICATED WITH DILOTED. PT GIVENPO PAIN MED AT 0100 TO GET BACK ON SCEDULAL. PT NOW SEEMS TO BE RESTING WELL. CALL LIGHT IN REACH.
[2023-07-15 05:10] LABS: Hematocrit 29.3 % (33.0-51.0); Hemoglobin 9.5 g/dL (11.5-16.0); Mean Corpuscular HGB 27.9 pg (26.0-34.0); Mean Corpuscular HGB Conc 32.4 g/dL (31.5-36.5); Mean Corpuscular Volume 86 fL (80-100); Platelet Count 279 K/mm3 (150-400); RDW Standard Deviation 47.4 fL (35.1-46.3); Red Blood Cell Count 3.41 M/mm3 (3.80-5.20); White Blood Cell Count 5.65 K/mm3 (4.00-11.30)
[2023-07-15 05:43] LABS: Bun/Creatinine Ratio 14.3 (12.0-20.0); Calcium, Blood 8.2 mg/dL (8.5-10.1); Creatinine, Blood 0.63 mg/dL (0.40-1.00); Potassium, Blood 4.2 mmol/L (3.5-5.5)
[2023-07-15 06:13] LABS: BASOPHILS ABSOLUTE MAN 0.05 K/mm3 (0.00-0.23); BASOPHILS PERCENT MAN 1 % (0-2); EOSINOPHILS ABSOLUTE MAN 0.05 K/mm3 (0.00-0.68); EOSINOPHILS PERCENT MAN 1 % (0-6); LYMPHOCYTES ABSOLUTE MAN 1.63 K/mm3 (0.84-5.20); LYMPHOCYTES PERCENT MAN 29 % (21-46); MONOCYTES ABSOLUTE MAN 0.62 K/mm3 (0.16-1.47); MONOCYTES PERCENT MAN 11 % (4-13); NEUTROPHILS ABSOLUTE MAN 3.27 K/mm3 (1.96-9.15); SEG NEUTROPHILS PERCENT MAN 58 % (41-73); TOTAL CELLS COUNTED 100
[2023-07-15 07:34] VITALS: BP 126/84
--- NOTE | 2023-07-15 12:27 | NUR ---
Pt. is awake in bed and welcomes my visit. Pt. is pleasant and verbalizes interest in our visit. Facilitate a more extended life review and consider matters of [place] and belief. Pt. displays evidence of emotional fragility at times, but also displays evidence of confidant trust during the visit. Consider matters of homelife and Pt. safety. Pt. verbalizes the story of a staff member who provided the Pt. with a vase for her dumont. Pt. verbalized gratitude for his simple but profound gesture. This head pastry chef moved her dumont to the window where they could get some sun. Prayed with Pt. Pt. verblaized gratitude for the extended spiritual care visit. At Pts. request, this head pastry chef provided the Pt. with a copy of the [place] Testam[place] and Psalms. Pt. verbalized gratitude for the spiriual care visit and requested this head pastry chef to return.
[2023-07-15 16:23] VITALS: BP 134/80
--- NOTE | 2023-07-15 19:13 | NUR ---
SHIFT SUMMARY: PT A/O X 4, STANDBY ASSIST. PLEASANT AND COOPERATIVE. PT PAIN MANAGED TODAY WELL. PT REPORTS ORAL DILAUDID GAVE BETTER PAIN CONTROL THEAN THE IV DOSE. PT UTURUS CONTINUES TO PROTRUDE AND IS PINK AND MOIST. PT HAD BM TODAY. HAS GOOD APPETITE. HAD VISITORS THROUGHOUT THE DAY AND SMILED WITH INTERACTION. NO CONCERNS AT SHIFT END FROM PT.
[2023-07-15 19:49] VITALS: BP 133/84
--- NOTE | 2023-07-16 02:44 | NUR ---
SHIFT SUMMERY, PT RESTING IN BED, PT HAD SHOWER ON DAY SHIFT. PT C/O GAS PAIN, PT HAD TAKEN MORE LACTOLOSE AND HAD BM AGAIN DURING DAYS. PT MEDICATED FOR PAIN AT SCEDUALED TIME. GVEL PT CRACKERS TO EAT WITH HER PAIN MED. PT NOW TRYING TO GO BACK TO SLEEP. CALL LIGHT IN REACH.
[2023-07-16 03:44] VITALS: BP 143/90
[2023-07-16 04:56] LABS: Hematocrit 28.6 % (33.0-51.0); Hemoglobin 9.2 g/dL (11.5-16.0); Mean Corpuscular HGB 27.8 pg (26.0-34.0); Mean Corpuscular HGB Conc 32.2 g/dL (31.5-36.5); Mean Corpuscular Volume 86 fL (80-100); Mean Platelet Volume 9.9 fL (9.1-12.4); Platelet Count 336 K/mm3 (150-400); RDW Standard Deviation 47.4 fL (35.1-46.3); Red Blood Cell Count 3.31 M/mm3 (3.80-5.20); White Blood Cell Count 5.13 K/mm3 (4.00-11.30)
[2023-07-16 05:33] LABS: BASOPHILS PERCENT MAN 0 % (0-2); EOSINOPHILS ABSOLUTE MAN 0.15 K/mm3 (0.00-0.68); EOSINOPHILS PERCENT MAN 3 % (0-6); LYMPHOCYTES % ATYPICAL MANUAL 1 % (0-0); LYMPHOCYTES PERCENT MAN 40 % (21-46); MONOCYTES ABSOLUTE MAN 0.41 K/mm3 (0.16-1.47); MONOCYTES PERCENT MAN 8 % (4-13); NEUTROPHILS ABSOLUTE MAN 2.46 K/mm3 (1.96-9.15); SEG NEUTROPHILS PERCENT MAN 48 % (41-73); TOTAL CELLS COUNTED 100
[2023-07-16 05:39] LABS: Bun/Creatinine Ratio 16.6 (12.0-20.0); Calcium, Blood 8.5 mg/dL (8.5-10.1); Creatinine, Blood 0.54 mg/dL (0.40-1.00); Potassium, Blood 3.8 mmol/L (3.5-5.5)
[2023-07-16 07:34] VITALS: BP 138/88
[2023-07-16 16:10] VITALS: BP 147/88
--- NOTE | 2023-07-16 18:20 | NUR ---
Pt. is awake in bed and welcomes my visit. Pt. is listening to holiness music and sobbing when I arrive. My objective is to re-establish rapport, to identify what is causing the Pt. to respond emotionally, and to be a calming yet joyful presence. Through guided questions was able to assess some of the pain in the Pts. past. Listened with empathy as the Pt. verbalized some of her life story. Offered pastoral primary counselor and prayed with Pt. Pt. verbalized significnace and gratitude of our spiritual care visits.
--- NOTE | 2023-07-16 18:29 | NUR ---
SHIFT SUMMARY: KATHERINE IS A&OX4. VSS, NO ACUTE EVENTS THIS SHIFT. SHE IS TOLERATING PO INTAKE WELL AND REPORTS IMPROVEMENT IN SYMPTOMS OF PAIN, NAUSEA, AND ABDOMINAL DISCOMFORT SINCE THE PESSARY WAS PLACED THIS AFTERNOON BY DR. ALVARENGA. DR. ALVARENGA GAVE VERBAL ORDER FOR PT'S LUGO TO REMAIN IN PLACE FOR 24-HOURS TO ENSURE PT IS ABLE TO HAVE BOWEL MOVEMENTS. AFTER 24-HOURS AND SUCCESSFUL BM, REMOVE LUGO. DR. ROMERO GAVE VERBAL ORDER FOR PT TO BE MONITORED FOR 24 HOURS AFTER LUGO IS REMOVED TO ENSURE PT IS ABLE TO URINATE WITHOUT DIFFICULTY. PT WALKED THE HALLS WITH THERAPY TODAY UNASSISTED. IV TO R WRIST PATENT. SHE IS SITTING UP IN BED WITH THE CALL LIGHT IN REACH. WCTM UNTIL REPORT IS GIVEN TO PHARMACY SERVICE ASSOCIATE RN.
[2023-07-16 19:11] VITALS: BP 133/97
--- NOTE | 2023-07-17 02:48 | NUR ---
SHIFT DIVINAY, PT RESTING IN BED, PT TOOK HS MEDS AND THEN WENT BACK TO SLEEP. ABOUT MN PT AWOKE AND WAS GIVEN HER SCEDUALED PAIN MEDS AND PT REQUESTED A SNACK. PT AT THIS TIME IS SEEMING TO BE SLEEPING WELL. CALL LIGHT IN REACH.
[2023-07-17 03:17] VITALS: BP 105/70
[2023-07-17 05:47] LABS: BASOPHILS ABSOLUTE AUTO 0.04 K/mm3 (0.00-0.23); BASOPHILS PERCENT AUTO 1 % (0-2); EOSINOPHILS ABSOLUTE AUTO 0.33 K/mm3 (0.00-0.68); EOSINOPHILS PERCENT AUTO 6 % (0-6); Hematocrit 32.8 % (33.0-51.0); Hemoglobin 10.5 g/dL (11.5-16.0); IMMATURE GRAN ABSOLUTE AUTO 0.04 K/mm3 (0.00-0.10); IMMATURE GRAN PERCENT AUTO 1 % (0-1); LYMPHOCYTES ABSOLUTE AUTO 2.37 K/mm3 (0.84-5.20); LYMPHOCYTES PERCENT AUTO 41 % (21-46); MONOCYTES ABSOLUTE AUTO 0.55 K/mm3 (0.16-1.47); MONOCYTES PERCENT AUTO 10 % (4-13); Mean Corpuscular HGB 27.3 pg (26.0-34.0); Mean Corpuscular Volume 85 fL (80-100); Mean Platelet Volume 9.8 fL (9.1-12.4); NEUTROPHILS ABSOLUTE AUTO 2.47 K/mm3 (1.96-9.15); NEUTROPHILS PERCENT AUTO 43 % (41-73); Platelet Count 438 K/mm3 (150-400); RDW Coefficient Variation 15.2 % (11.7-14.2); RDW Standard Deviation 47.1 fL (35.1-46.3); Red Blood Cell Count 3.84 M/mm3 (3.80-5.20)
[2023-07-17 06:14] LABS: Bun/Creatinine Ratio 25.5 (12.0-20.0); Calcium, Blood 9.2 mg/dL (8.5-10.1); Creatinine, Blood 0.71 mg/dL (0.40-1.00); Potassium, Blood 4.6 mmol/L (3.5-5.5)
[2023-07-17 07:26] VITALS: BP 122/84
[2023-07-17 17:10] VITALS: BP 120/79
--- NOTE | 2023-07-17 18:13 | NUR ---
PT REPORTS URINARY LEAKAGE, PAD IN PLACE. PT ABLE TO VOID 100 CC, POST VOID BLADDER SCAN NEGATIVE. ENCOURAGED PT TO INCREASE PO WATER INTAKE, PT STATES SHE HAS NOT DRANK MUCH TODAY.
--- NOTE | 2023-07-17 19:12 | NUR ---
SHIFT SUMMARY: KATHERINE IS A&OX4. VSS, NO ACUTE EVENTS THIS SHIFT. PT IS INDEPENDENT IN THE ROOM AND WITH ADLS. IV TO R WRIST POSITIONAL BUT PATENT. SHE IS TOLERATING PO INTAKE WELL, WAS MEDICATED ONCE FOR NAUSEA, AND HAS BEEN ABLE TO HAVE A BM WITH THE PESSARY IN PLACE WELL URINATE POST LUGO REMOVAL. SHE IS SITTING UP IN BED WITH THE CALL LIGHT IN REACH. REPORT WAS GIVEN TO DEVIL TENDER RN.
[2023-07-17 19:28] VITALS: BP 124/80
[2023-07-18 04:09] VITALS: BP 123/77
--- NOTE | 2023-07-18 05:51 | NUR ---
EOS: PATIENT HAD SOME MINOR ISSUES WITH RETENTIONS WAS FINALLY ABLE TO VOID SELF, DECLINED STRAIGHT CATH WAS 476 VOIDED 300 OUT, ENDORSED AND EDUCATED ON BLADDER TRAINING. PATIENT AGREEABLE SOME INCREAED PAIN VEE DILAUDED PRN MEDICATION WITH DISTENTION AND RETENTION. PATIENT CURRENTLY SLEEPING VSS. NO CONCERNS FROM THIS RN AT THIS TIME A/OX4. DENIES CHEST PAIN PRESSURE OR SOB.
[2023-07-18 08:15] VITALS: BP 139/90
--- NOTE | 2023-07-18 09:00 | NUR ---
pt sitting up in bed eating breakfast, she is very talkative, but becomes tearful easily, a/ox4, pleasant and cooperative with care, follows commands well, reports pain this am, her 0600 pain med was held as she was sleeping, this was given, lungs are clear t/o, resp even and unlabored, no cough noted, hrr, no edema noted, ppp+2, cap refill <3sec, vs stable, afebrile, iv site is clear and patent, btx4, abd flat soft nontender, voids without diff, skin c/w/d, maew, kelly, call light in reach.
[2023-07-18 15:43] VITALS: BP 120/81
--- NOTE | 2023-07-18 18:32 | NUR ---
pt has been up out in halls has had a bm this am and has voided and reports it's getting easier, has had pain but nothing out of control, call light in reach.
[2023-07-18 20:52] VITALS: BP 142/89
[2023-07-19 04:02] VITALS: BP 126/81
--- NOTE | 2023-07-19 06:35 | NUR ---
Rn summary: Patient is alert and oriented. She was a little tearful at the beginning of shift. She is worried about her surgery next week. She states it is the first time she has gone through something like this alone. Patient feelings acknowleged. She states she is much improved. Patient has been voiding adequately. Patient is having less pain, may not need scheduled pain meds. Her IV was tender and not patent, IV DC'd. Patient is independant in room. Has rested well. Call light in reach.
[2023-07-19 07:29] VITALS: BP 121/81
[2023-07-19] MEDS ORDERED: Acetaminophen650 M1 PO (11:40)
[2023-07-19 11:41] LABS: SARS-Cov-2 (COVID-19) PCR, MMC NEGATIVE (NEGATIVE)
[2023-07-19] MEDS ORDERED: CEFTRIAXON1 GM/50 M1 IV (11:43)
[2023-07-19] MEDS ORDERED: DOCUZEN 8.6-501 EACH PO (11:44)
[2023-07-19] MEDS ORDERED: ENOX40I SC (11:46)
[2023-07-19] MEDS ORDERED: Estrace Vagin42.5 GM VAG (11:47)
[2023-07-19] MEDS ORDERED: HYDROCODONE-AC1 EA16 PO (11:48)
[2023-07-19] MEDS ORDERED: LACT10SY PO (11:49)
[2023-07-19] MEDS ORDERED: DULCOLAX400 MG/5 M PO (11:52)
[2023-07-19] MEDS ORDERED: ONDA4ODT MM (11:52)
[2023-07-19] MEDS ORDERED: MIRALAX17 GM PO (11:52)
[2023-07-19] MEDS ORDERED: CURAD PETROLEUM5 GM TOP (11:54)
[2023-07-19] MEDS ORDERED: SODIUM CHLORID100 ML IV (11:54)
--- NOTE | 2023-07-19 14:51 | NUR ---
PT DISCHARGED FROM THE UNIT. POWERGLIDE PLACED FOR ABX USE IN SNF. REPORT CALLED. PT LEFT VIA WC
== END 2023-07-19 13:55 | DRG 872 ==
LOC: ER 11:15 → MEDS 11:16 → ENPENDDIS 07-19 10:08 → MEDS 07-19 13:55
PROVIDERS: Emergency Medicine; Hospitalist; Internal Medicine; ADMIT Internal Medicine
DX: A41.51 Sepsis due to Escherichia coli [E. coli] (principal); N13.6 Pyonephrosis; N32.0 Bladder-neck obstruction; G43.909 Migraine, unspecified, not intractable, without status migrainosus; J44.9 Chronic obstructive pulmonary disease, unspecified; M54.9 Dorsalgia, unspecified; K40.90 Unilateral inguinal hernia, without obstruction or gangrene, not specified as recurrent; R65.20 Severe sepsis without septic shock; N81.4 Uterovaginal prolapse, unspecified; G89.29 Other chronic pain; F41.9 Anxiety disorder, unspecified; F43.10 Post-traumatic stress disorder, unspecified; D64.9 Anemia, unspecified; E87.6 Hypokalemia; Z87.442 Personal history of urinary calculi; Z87.820 Personal history of traumatic brain injury; Z90.49 Acquired absence of other specified parts of digestive tract; Z98.51 Tubal ligation status; Z90.89 Acquired absence of other organs; Z98.890 Other specified postprocedural states; Z87.891 Personal history of nicotine dependence; Z88.0 Allergy status to penicillin; Z88.8 Allergy status to other drugs, medicaments and biological substances; K59.09 Other constipation; Z11.52 Encounter for screening for COVID-19
CPT/HCPCS: 36415; 51702; 74176; 74177; 80048; 80053; 81001; 83605; 84443; 85025; 85027; 87040; 87077; 87086; 87186; 96365; 96375; 97110; 97116; 97162; 97165; 97530; 97535; 99285-25; A9270; J0696; J1170; J1650; J1885; J2405; J3010; J3480; J7030; J7050; Q9967; U0002

== ENCOUNTER 2023-08-14 20:56 | Inpatient (IN) | payer OTHER ==
[~2023-08-14] VITALS: Ht 162.6 cm; Wt 50.0 kg
[~2023-08-14 20:56] MED LIST changes: +Acetaminophen650 M1 PO; +CEFTRIAXON1 GM/50 M1 IV; +CURAD PETROLEUM5 GM TOP; +DOCUZEN 8.6-501 EACH PO; +DULCOLAX400 MG/5 M PO; +ENOX40I SC; +Estrace Vagin42.5 GM VAG; +HYDROCODONE-AC1 EA16 PO; +LACT10SY PO; +SODIUM CHLORID100 ML IV
[2023-08-14 23:06] LABS: BASOPHILS ABSOLUTE AUTO 0.03 K/mm3 (0.00-0.23); BASOPHILS PERCENT AUTO 0 % (0-2); EOSINOPHILS PERCENT AUTO 0 % (0-6); Hematocrit 27.1 % (33.0-51.0); Hemoglobin 9.1 g/dL (11.5-16.0); IMMATURE GRAN ABSOLUTE AUTO 0.29 K/mm3 (0.00-0.10); IMMATURE GRAN PERCENT AUTO 1 % (0-1); LYMPHOCYTES ABSOLUTE AUTO 1.13 K/mm3 (0.84-5.20); LYMPHOCYTES PERCENT AUTO 5 % (21-46); MONOCYTES ABSOLUTE AUTO 1.56 K/mm3 (0.16-1.47); MONOCYTES PERCENT AUTO 7 % (4-13); Mean Corpuscular HGB 28.4 pg (26.0-34.0); Mean Corpuscular HGB Conc 33.6 g/dL (31.5-36.5); Mean Corpuscular Volume 85 fL (80-100); Mean Platelet Volume 11.6 fL (9.1-12.4); NEUTROPHILS ABSOLUTE AUTO 19.86 K/mm3 (1.96-9.15); NEUTROPHILS PERCENT AUTO 87 % (41-73); Platelet Count 178 K/mm3 (150-400); RDW Coefficient Variation 14.8 % (11.7-14.2); RDW Standard Deviation 46.2 fL (35.1-46.3); White Blood Cell Count 22.87 K/mm3 (4.00-11.30)
[2023-08-14 23:22] LABS: Alanine Aminotransfer (ALT/SGP 23 U/L (12-78); Albumin, Blood 2.3 g/dL (3.4-5.0); Albumin/Globulin Ratio 0.6 (0.8-1.8); Alk Phos 60 U/L (50-136); Anion Gap 8 mmol/L (6-16); Aspartate Aminotrans (AST/SGOT 23 U/L (12-37); Bilirubin, Direct <0.1 mg/dL (0.0-0.3); Bilirubin, Indirect Unable to Calculate mg/dL (0.1-0.7); Bilirubin, Total 0.3 mg/dL (0.1-1.0); Blood Urea Nitrogen 18 mg/dL (8-24); Bun/Creatinine Ratio 23.5 (12.0-20.0); CO2, Blood 23 mmol/L (21-32); Calcium, Blood 7.3 mg/dL (8.5-10.1); Chloride, Blood 101 mmol/L (98-108); Creatinine, Blood 0.77 mg/dL (0.40-1.00); Globulin, Blood 3.7 g/dL (2.2-4.0); Glomerular Filtration Rate 95 (60-); Glucose, Blood 115 mg/dL (70-99); Potassium, Blood 3.3 mmol/L (3.5-5.5); Sodium, Blood 132 mmol/L (136-145)
[2023-08-15 00:47] LABS: Source, Urine Straight Cath
[2023-08-15 00:57] LABS: Appearance, Urine Hazy (Clear); Bilirubin, Urine Neg (Neg); Blood, Urine 4+ (Neg); Color, Urine Yellow (P-Yellow); Glucose Qualitative, Urine Neg (Neg); Ketones, Urine Neg (Neg); Leukocyte Esterase, Urine 3+ (Neg); Nitrite, Urine Neg (Neg); Protein, Urine 2+ (Neg); Urobilinogen, Urine NORM (Normal)
[2023-08-15 01:09] LABS: Bacteria Many /hpf; Red Blood Cells, Urine 0-2 /hpf (0-2); Squamous Epithelial Cells Few /hpf (Few); White Blood Cells, Urine TNTC /hpf (0-5)
[2023-08-15 01:10] LABS: Granular Casts 0-2 /lpf (0)
[2023-08-15 05:00] VITALS: BP 94/68
[2023-08-15 05:15] VITALS: BP 103/73; BP 108/77
[2023-08-15 05:30] VITALS: BP 116/81
[2023-08-15 05:56] LABS: BASOPHILS ABSOLUTE AUTO 0.05 K/mm3 (0.00-0.23); BASOPHILS PERCENT AUTO 0 % (0-2); EOSINOPHILS ABSOLUTE AUTO 0.06 K/mm3 (0.00-0.68); EOSINOPHILS PERCENT AUTO 0 % (0-6); Hematocrit 32.2 % (33.0-51.0); Hemoglobin 10.5 g/dL (11.5-16.0); IMMATURE GRAN ABSOLUTE AUTO 0.14 K/mm3 (0.00-0.10); IMMATURE GRAN PERCENT AUTO 1 % (0-1); LYMPHOCYTES ABSOLUTE AUTO 1.64 K/mm3 (0.84-5.20); LYMPHOCYTES PERCENT AUTO 10 % (21-46); MONOCYTES ABSOLUTE AUTO 1.33 K/mm3 (0.16-1.47); MONOCYTES PERCENT AUTO 8 % (4-13); Mean Corpuscular HGB 28.5 pg (26.0-34.0); Mean Corpuscular HGB Conc 32.6 g/dL (31.5-36.5); Mean Corpuscular Volume 88 fL (80-100); NEUTROPHILS ABSOLUTE AUTO 13.18 K/mm3 (1.96-9.15); NEUTROPHILS PERCENT AUTO 80 % (41-73); RDW Coefficient Variation 15.2 % (11.7-14.2); RDW Standard Deviation 48.8 fL (35.1-46.3); Red Blood Cell Count 3.68 M/mm3 (3.80-5.20)
[2023-08-15 06:12] LABS: Bun/Creatinine Ratio 21.5 (12.0-20.0); Calcium, Blood 6.8 mg/dL (8.5-10.1); Creatinine, Blood 0.65 mg/dL (0.40-1.00); Potassium, Blood 3.9 mmol/L (3.5-5.5)
[2023-08-15 06:19] LABS: Mean Platelet Volume 10.9 fL (9.1-12.4); Platelet Count 136 K/mm3 (150-400)
[2023-08-15 08:03] VITALS: BP 109/76
[2023-08-15 16:17] VITALS: BP 118/76
--- NOTE | 2023-08-15 18:02 | NUR ---
UPDATE PT REMAINS ALERT AND ORIENTED. BP STABLE. HR WAS NSR, BUT TELEMETRY HAS BEEN DISCONTINUED. O2 SATS >90% ON RA. PT HAS BEEN AFEBRILE, BUT TEMPERATURE THIS EVENING IS 100.1. PT HAS COMPLAINED OF BACK AND ABD PAIN ON AND OFF THIS SHIFT. PT MEDICATED PER EMAR AND REPOSITIONED NEEDED TO ALLEVIATE PAIN. LUGO PATENT AND DRAINING CLEAR YELLOW URINE. PT HAD GOOD APPETITE UNITL THIS EVENING. PT ATTEMPTED TO EAT DINNER AND BECAME NAUSEOUS AND VOMITTED. DR. LAGUNA CALLED AND NEW ORDERS FOR BRIGITTE RECEIVED. PT MEDICATED AND COOL CLOTH PLACED ON PT'S HEAD. WILL CONTINUE TO MONITOR AND REPORT TO ONCOMING ROSA
[2023-08-15 20:57] VITALS: BP 124/73
[2023-08-16 06:09] VITALS: BP 105/75
[2023-08-16 07:28] VITALS: BP 112/67
--- NOTE | 2023-08-16 07:35 | NUR ---
SHIFT SUMMARY: A&OX4. REPORTS IMPROVED PAIN IN ABDOMEN/BACK AT 4/10 THROUGHOUT SHIFT. COMPLAINING OF WAGGONER THAT INCREASED WITH INCREASING TEMPERATURE. PEAK TEMP AT 101.8, MEDICATED WITH TYLENOL AND IBUPROFEN WITH GOOD RESULT. FENTYNAL IV GIVEN FOR WAGGONER WITH GOOD RESULT. HR REMAINS IN 70-80'S WIHTOUT TELE. BP'S STABLE, SEE RECORDED VITAL SIGNS. O2 SATS > 92% ON RA. RESPIRATIONS EVEN AND UNLABORED. LUGO CATHETER DRAINING TO GRAVITY WITHOUT DIFFICULY. CALL LIGHT IN REACH. BED IN LOW POSITION.
[2023-08-16 08:49] LABS: BASOPHILS ABSOLUTE AUTO 0.02 K/mm3 (0.00-0.23); BASOPHILS PERCENT AUTO 0 % (0-2); EOSINOPHILS ABSOLUTE AUTO 0.09 K/mm3 (0.00-0.68); EOSINOPHILS PERCENT AUTO 1 % (0-6); Hematocrit 28.4 % (33.0-51.0); Hemoglobin 9.3 g/dL (11.5-16.0); IMMATURE GRAN ABSOLUTE AUTO 0.03 K/mm3 (0.00-0.10); IMMATURE GRAN PERCENT AUTO 0 % (0-1); LYMPHOCYTES ABSOLUTE AUTO 1.35 K/mm3 (0.84-5.20); LYMPHOCYTES PERCENT AUTO 17 % (21-46); MONOCYTES ABSOLUTE AUTO 0.77 K/mm3 (0.16-1.47); MONOCYTES PERCENT AUTO 10 % (4-13); Mean Corpuscular HGB 28.4 pg (26.0-34.0); Mean Corpuscular HGB Conc 32.7 g/dL (31.5-36.5); Mean Corpuscular Volume 87 fL (80-100); Mean Platelet Volume 10.6 fL (9.1-12.4); NEUTROPHILS PERCENT AUTO 72 % (41-73); Platelet Count 198 K/mm3 (150-400); RDW Coefficient Variation 15.4 % (11.7-14.2); RDW Standard Deviation 49.1 fL (35.1-46.3); Red Blood Cell Count 3.28 M/mm3 (3.80-5.20); White Blood Cell Count 7.96 K/mm3 (4.00-11.30)
[2023-08-16 09:15] LABS: Anion Gap 4 mmol/L (6-16); Blood Urea Nitrogen 7 mg/dL (8-24); CO2, Blood 29 mmol/L (21-32); Calcium, Blood 8.2 mg/dL (8.5-10.1); Chloride, Blood 107 mmol/L (98-108); Creatinine, Blood 0.58 mg/dL (0.40-1.00); Glomerular Filtration Rate 112 (60-); Glucose, Blood 113 mg/dL (70-99); Phosphorus, Blood 3.1 mg/dL (2.5-4.9); Potassium, Blood 3.5 mmol/L (3.5-5.5); Sodium, Blood 140 mmol/L (136-145)
[2023-08-16 14:54] VITALS: BP 126/91
--- NOTE | 2023-08-16 15:27 | NUR ---
UPDATE PT REMAINS ALERT AND ORIENTED. BP STABLE. O2 SATS >90% ON RA. LUGO PATENT AND DRAINING CLEAR YELLOW URINE. BLOOD NOTED ON ATTENDS THIS SHIFT AND PT STATES SHE STARTED HER PERIOD TODAY. PT GOT IN THE SHOWER TODAY. SHE COMPLAINS OF PAIN AT TIMES IN HER BACK THE RADIATES TO HER ABDOMEN. PT MEDICATED NEEDED PER EMAR. TEMPERATURE ELEVATED THIS AFTERNOON AND MEDICATED PER EMAR. BED ASSIGNMENT PROVIDED ON MEDICAL FLOOR. REPORT GIVEN TO MEDICAL FLOOR RN. PT TO BE TAKEN TO UP BY BED.
--- NOTE | 2023-08-16 17:23 | NUR ---
PT TRANSFERED FROM U. ORIENTED TO THE ROOM. PROVIDED WATER. PT REPORTS NO OTHER NEEDS AT THIS TIME
[2023-08-16 18:33] LABS: Influenza A, PCR NEGATIVE (NEGATIVE); Influenza B, PCR NEGATIVE (NEGATIVE); Resp Syncytial Virus, PCR NEGATIVE (NEGATIVE); SARS-Cov-2 (COVID-19) PCR, MMC NEGATIVE (NEGATIVE)
[2023-08-16 21:09] VITALS: BP 113/68
[2023-08-17 04:32] VITALS: BP 109/66
--- NOTE | 2023-08-17 04:47 | NUR ---
END OF SHIFT SUMMARY PT SLEPT ON AND OFF THROUGHOUT THE NIGHT. PT A&O x4, VSS. PT PLEASANT AND COOPERATIVE WITH CARE PROVIDED. PT C/O PAIN R SIDE FLANK PAIN/ABDOMIN. PAIN MANAGED WITH ALTERNATING BETWEEN PRN PO OXYCODONE AND PRN IV FENTANYL. PT DID HAVE A 100.0 FEVER AT 0150 THIS MORNING. TEMPERATURE RE-CHECK AT 0432 WAS 98.5. PT RESTING COMFORTABLY IN BED. FREQUENT SAFETY CHECKS COMPLETED THROUGHOUT THE SHIFT. LUGO CATHETER PATENT, DRAINING WELL, STRAW COLORED URINE. CALL LIGHT WITHIN REACH, WCTM.
[2023-08-17 05:03] LABS: BASOPHILS ABSOLUTE AUTO 0.03 K/mm3 (0.00-0.23); BASOPHILS PERCENT AUTO 1 % (0-2); EOSINOPHILS ABSOLUTE AUTO 0.09 K/mm3 (0.00-0.68); EOSINOPHILS PERCENT AUTO 2 % (0-6); Hematocrit 26.1 % (33.0-51.0); Hemoglobin 8.7 g/dL (11.5-16.0); IMMATURE GRAN ABSOLUTE AUTO 0.02 K/mm3 (0.00-0.10); IMMATURE GRAN PERCENT AUTO 0 % (0-1); LYMPHOCYTES ABSOLUTE AUTO 1.37 K/mm3 (0.84-5.20); LYMPHOCYTES PERCENT AUTO 24 % (21-46); MONOCYTES ABSOLUTE AUTO 0.79 K/mm3 (0.16-1.47); MONOCYTES PERCENT AUTO 14 % (4-13); Mean Corpuscular HGB 28.2 pg (26.0-34.0); Mean Corpuscular HGB Conc 33.3 g/dL (31.5-36.5); Mean Corpuscular Volume 85 fL (80-100); Mean Platelet Volume 10.2 fL (9.1-12.4); NEUTROPHILS ABSOLUTE AUTO 3.47 K/mm3 (1.96-9.15); NEUTROPHILS PERCENT AUTO 60 % (41-73); Platelet Count 212 K/mm3 (150-400); RDW Coefficient Variation 15.4 % (11.7-14.2); RDW Standard Deviation 48.3 fL (35.1-46.3); Red Blood Cell Count 3.08 M/mm3 (3.80-5.20); White Blood Cell Count 5.77 K/mm3 (4.00-11.30)
[2023-08-17 05:42] LABS: Anion Gap 5 mmol/L (6-16); Blood Urea Nitrogen 7 mg/dL (8-24); Bun/Creatinine Ratio 12.9 (12.0-20.0); CO2, Blood 28 mmol/L (21-32); Calcium, Blood 8.3 mg/dL (8.5-10.1); Chloride, Blood 105 mmol/L (98-108); Creatinine, Blood 0.54 mg/dL (0.40-1.00); Glomerular Filtration Rate 114 (60-); Glucose, Blood 84 mg/dL (70-99); Phosphorus, Blood 3.7 mg/dL (2.5-4.9); Potassium, Blood 3.6 mmol/L (3.5-5.5); Sodium, Blood 138 mmol/L (136-145)
--- NOTE | 2023-08-17 07:17 | NUR ---
ASSUMED CARE: PT AWAKE BUT LAYING IN BED. NIGHT RN ADMINISTERING PAIN MEDICATION FOR RIGHT FLANK PAIN. DENIES FURTHER NEEDS OR CONCERNS AT THIS TIME.
[2023-08-17 07:37] VITALS: BP 119/81
--- NOTE | 2023-08-17 13:20 | NUR ---
THIS COURT SPECIALIST CALLED TO ROOM PT VAGINAL APPLICIANCE HAD SLIPPED FROM VAGINAL CAVITY, PT REQUESTED THAT I ASSIST HER IN PUTTING IT BACK. THIS WAS ACCOMPLISHED UNDER PT DIRECTION WITHOUT DIFFICULTY. RN VERIFIED
[2023-08-17 16:02] VITALS: BP 125/83
--- NOTE | 2023-08-17 17:13 | NUR ---
SHIFT SUMMARY: DR CHANGED ANTIBIOTICS TODAY DUE TO POSITIVE BLOOD CULTURE. MEDICATED X1 FOR HEADACHE. TMAX 99.9 TODAY. NO ACUTE NEEDS OR CONCERNS AT THIS TIME.
[2023-08-17 20:17] VITALS: BP 116/85
[2023-08-18 04:16] VITALS: BP 129/92
--- NOTE | 2023-08-18 04:53 | NUR ---
END OF SHIFT SUMMARY PT SLEPT THE MAJORITY OF THE SHIFT. PT REQUESTED PAIN MEDICATION AT BEGINNING OF SHIFT. PAIN MANAGED WITH PRN OXYCODONE AND APAP. PT RECEIVED NEW IV ANTIBIOTIC, MERREM. PT TOLERATING DIET, ADEQUENT APPETITE. NO N/V. LUGO CATH PATENT, PLACED FOR RETENTION. LARGE OUTPUT DOCUMENTED ON NOC SHIFT. PT A&O x4, VSS, AFEBRILE. PT ABLE TO MAKE NEEDS KNOWN. PT PLEASANT AND COOPERATIVE WITH CARE PROVIDED. CALL LIGHT WITHIN REACH, WCTM.
[2023-08-18 07:10] LABS: Albumin, Blood 2.3 g/dL (3.4-5.0); Anion Gap 5 mmol/L (6-16); Blood Urea Nitrogen 13 mg/dL (8-24); CO2, Blood 30 mmol/L (21-32); Calcium, Blood 8.9 mg/dL (8.5-10.1); Chloride, Blood 103 mmol/L (98-108); Creatinine, Blood 0.47 mg/dL (0.40-1.00); Glomerular Filtration Rate 117 (60-); Glucose, Blood 84 mg/dL (70-99); Phosphorus, Blood 3.8 mg/dL (2.5-4.9); Potassium, Blood 4.1 mmol/L (3.5-5.5); Sodium, Blood 138 mmol/L (136-145)
[2023-08-18 07:16] LABS: BASOPHILS ABSOLUTE AUTO 0.04 K/mm3 (0.00-0.23); BASOPHILS PERCENT AUTO 1 % (0-2); EOSINOPHILS ABSOLUTE AUTO 0.15 K/mm3 (0.00-0.68); EOSINOPHILS PERCENT AUTO 2 % (0-6); Hematocrit 29.6 % (33.0-51.0); Hemoglobin 9.7 g/dL (11.5-16.0); IMMATURE GRAN ABSOLUTE AUTO 0.02 K/mm3 (0.00-0.10); IMMATURE GRAN PERCENT AUTO 0 % (0-1); LYMPHOCYTES ABSOLUTE AUTO 1.42 K/mm3 (0.84-5.20); LYMPHOCYTES PERCENT AUTO 22 % (21-46); MONOCYTES ABSOLUTE AUTO 0.68 K/mm3 (0.16-1.47); MONOCYTES PERCENT AUTO 11 % (4-13); Mean Corpuscular HGB Conc 32.8 g/dL (31.5-36.5); Mean Corpuscular Volume 86 fL (80-100); Mean Platelet Volume 10.6 fL (9.1-12.4); NEUTROPHILS ABSOLUTE AUTO 4.12 K/mm3 (1.96-9.15); NEUTROPHILS PERCENT AUTO 64 % (41-73); Platelet Count 295 K/mm3 (150-400); RDW Standard Deviation 47.6 fL (35.1-46.3); Red Blood Cell Count 3.46 M/mm3 (3.80-5.20); White Blood Cell Count 6.43 K/mm3 (4.00-11.30)
[2023-08-18 08:02] VITALS: BP 122/88
--- NOTE | 2023-08-18 10:15 | NUR ---
IV ACCESS PT IV LEAKING WHEN FLUSHED PRIOR TO ANTIBIOTIC. REQUESTED RESTART BY CHARGE NURSE. MULTIPLE ATTEMPTS. NOT ABLE TO THREAD. CALLED DR LAGUNA TO CONFIRM LENGTH OF ANTIBITOIC TREATMENT BEFORE PLACING A POWERGLIDE. POWER GLIDE REQUESTED FROM DR LAGUNA. REQUEST PASSED TO CHARGE NURSE ALEJANDRO LEE. CONTINUE POC.
--- NOTE | 2023-08-18 10:28 | NUR ---
dr hugo arias recalled and stated never mind on the power glide. He is going to switch her to po antibiotics. Continue poc.
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
[2023-08-18 15:14] VITALS: BP 118/76
[2023-08-18 19:42] VITALS: BP 120/80
[2023-08-19 03:02] VITALS: BP 130/89
--- NOTE | 2023-08-19 04:18 | NUR ---
SHIFT SUMMARY; NO ACUTE CHANGES OVERNIGHT. THE PT IS AXO X4 AND INDEPENDENT IN THE ROOM. THE PT HAS A LUGO CATHETER, IT IS PATENT AND DRAINING TO GRAVITY. THE PT HAS BEEN MEDICATED FOR FLANK PAIN AND A HEADACHE A FEW TIMES THIS EVENING. THE PT DENIES ANY SOB, CHEST PAIN/PRESSURE OR N/V. CURRENTLY THE PT IS LYING IN BED WITH THE BED IN THE LOWEST POSITION AND THE CALL LIGHT AT BEDSIDE. FIRE SAFETY CHECKS COMPLETED T/O THE NIGHT.
[2023-08-19 05:23] LABS: BASOPHILS ABSOLUTE AUTO 0.04 K/mm3 (0.00-0.23); BASOPHILS PERCENT AUTO 1 % (0-2); EOSINOPHILS ABSOLUTE AUTO 0.19 K/mm3 (0.00-0.68); EOSINOPHILS PERCENT AUTO 3 % (0-6); Hematocrit 32.2 % (33.0-51.0); Hemoglobin 10.1 g/dL (11.5-16.0); IMMATURE GRAN ABSOLUTE AUTO 0.06 K/mm3 (0.00-0.10); IMMATURE GRAN PERCENT AUTO 1 % (0-1); LYMPHOCYTES ABSOLUTE AUTO 1.96 K/mm3 (0.84-5.20); LYMPHOCYTES PERCENT AUTO 25 % (21-46); MONOCYTES ABSOLUTE AUTO 0.85 K/mm3 (0.16-1.47); MONOCYTES PERCENT AUTO 11 % (4-13); Mean Corpuscular HGB 27.2 pg (26.0-34.0); Mean Corpuscular HGB Conc 31.4 g/dL (31.5-36.5); Mean Corpuscular Volume 87 fL (80-100); Mean Platelet Volume 10.5 fL (9.1-12.4); NEUTROPHILS ABSOLUTE AUTO 4.65 K/mm3 (1.96-9.15); NEUTROPHILS PERCENT AUTO 60 % (41-73); Platelet Count 356 K/mm3 (150-400); RDW Coefficient Variation 14.7 % (11.7-14.2); RDW Standard Deviation 47.3 fL (35.1-46.3); Red Blood Cell Count 3.71 M/mm3 (3.80-5.20); White Blood Cell Count 7.75 K/mm3 (4.00-11.30)
[2023-08-19 05:51] LABS: Albumin, Blood 2.5 g/dL (3.4-5.0); Anion Gap 6 mmol/L (6-16); Blood Urea Nitrogen 19 mg/dL (8-24); Bun/Creatinine Ratio 35.5 (12.0-20.0); CO2, Blood 26 mmol/L (21-32); Calcium, Blood 9.5 mg/dL (8.5-10.1); Chloride, Blood 102 mmol/L (98-108); Creatinine, Blood 0.54 mg/dL (0.40-1.00); Glomerular Filtration Rate 114 (60-); Glucose, Blood 100 mg/dL (70-99); Phosphorus, Blood 3.8 mg/dL (2.5-4.9); Potassium, Blood 4.6 mmol/L (3.5-5.5); Sodium, Blood 134 mmol/L (136-145)
[2023-08-19 07:23] VITALS: BP 124/86
[2023-08-19 15:51] VITALS: BP 119/75
--- NOTE | 2023-08-19 17:42 | NUR ---
Pt. is awake in bed and welcomed my visit. Pt. is pleasant and is known to this Plate Molder from a previous hospital visit. Facilitated conversation about her care between hospitalizations. Pt. was unsettled about the care at [facility]. Listened with empathy and a calming presence. Sought to normalize the Pt. experience. Pt. displayed evidence of trust. Prayed with Pt. Pt. welcomed this clinical trial head to return.
--- NOTE | 2023-08-19 18:08 | NUR ---
NO ACUTE CHANGES PT ABLE TO MAKE NEEDS KNOWN. PT INDEPENDENT TO RESTROOM. PT TREATED FOR BACK AND WAGGONER PER EMAR. NO DISTRESS NOTED CURRENTLY AND CALL LIGHT WITHIN REACH. WILL CONTINUE TO MONITOR.
[2023-08-19 19:20] VITALS: BP 109/71
[2023-08-20 04:51] VITALS: BP 101/87
--- NOTE | 2023-08-20 04:57 | NUR ---
SHIFT SUMMARY PT A&Ox4, CALM AND COOPERATIVE WITH CARE. LUGO IN PLACE D/T ACUTE RETENTION. DRAINING YELLOW URINE WITHOUT DIFFICULTY. OUTPUT 1500 OVERNIGHT. ENCOURAGED ORAL HYDRATION. PT COMPLAINS OF RIGHT SIDED FLANK PAIN AND HEADACHE. PROVIDED WARM ROLLED UP BLANKET FOR BACK PAIN AND MEDICATED PER EMAR. BED KEPT IN LOWEST POSITION WITH CALL LIGHT WITHIN REACH. PT KNOWS HOW TO CALL FOR NEEDS. WILL CONTINUE TO MONITOR UNTIL END OF SHIFT.
[2023-08-20 05:07] LABS: BASOPHILS ABSOLUTE AUTO 0.05 K/mm3 (0.00-0.23); BASOPHILS PERCENT AUTO 1 % (0-2); EOSINOPHILS PERCENT AUTO 3 % (0-6); Hematocrit 32.7 % (33.0-51.0); Hemoglobin 10.4 g/dL (11.5-16.0); IMMATURE GRAN ABSOLUTE AUTO 0.08 K/mm3 (0.00-0.10); IMMATURE GRAN PERCENT AUTO 1 % (0-1); LYMPHOCYTES ABSOLUTE AUTO 2.07 K/mm3 (0.84-5.20); LYMPHOCYTES PERCENT AUTO 29 % (21-46); MONOCYTES ABSOLUTE AUTO 0.73 K/mm3 (0.16-1.47); MONOCYTES PERCENT AUTO 10 % (4-13); Mean Corpuscular HGB 27.7 pg (26.0-34.0); Mean Corpuscular HGB Conc 31.8 g/dL (31.5-36.5); Mean Corpuscular Volume 87 fL (80-100); Mean Platelet Volume 10.3 fL (9.1-12.4); NEUTROPHILS ABSOLUTE AUTO 3.96 K/mm3 (1.96-9.15); NEUTROPHILS PERCENT AUTO 56 % (41-73); Platelet Count 431 K/mm3 (150-400); RDW Coefficient Variation 14.7 % (11.7-14.2); RDW Standard Deviation 47.4 fL (35.1-46.3); Red Blood Cell Count 3.75 M/mm3 (3.80-5.20); White Blood Cell Count 7.09 K/mm3 (4.00-11.30)
[2023-08-20 05:27] LABS: Albumin, Blood 2.7 g/dL (3.4-5.0); Anion Gap 7 mmol/L (6-16); Blood Urea Nitrogen 22 mg/dL (8-24); Bun/Creatinine Ratio 40.9 (12.0-20.0); CO2, Blood 25 mmol/L (21-32); Calcium, Blood 8.9 mg/dL (8.5-10.1); Chloride, Blood 104 mmol/L (98-108); Creatinine, Blood 0.54 mg/dL (0.40-1.00); Glomerular Filtration Rate 114 (60-); Glucose, Blood 103 mg/dL (70-99); Potassium, Blood 4.6 mmol/L (3.5-5.5); Sodium, Blood 136 mmol/L (136-145)
[2023-08-20 07:26] VITALS: BP 128/69
[2023-08-20] MEDS ORDERED: CEFD300 PO (11:46)
[2023-08-20] MEDS ORDERED: IBUP400 PO (11:46)
[2023-08-20] MEDS ORDERED: OXAYDO5 M1 PO (11:47)
[2023-08-20] MEDS ORDERED: VISBIOME 112.51 EACH PO (11:48)
--- NOTE | 2023-08-20 14:34 | NUR ---
PT DISCHARGED AT 1415 WITH FRIEND TO TRANSPORT. PT REFUSED ESCORT AND AMBULATED OUT ON HER OWN. PT DISCHARGED WITH LUGO IN PLACE AND WAS EDUCATED ON CATH CARE PRIOR TO DISCHARGE. NO DISTRESS NOTED AND ALL PERSONAL BELONGINGS COLLECTED.
== END 2023-08-20 14:36 | disposition home or self-care (01) | DRG 872 ==
LOC: ER 20:56 → PCU 08-15 03:43 → MEDS 08-15 03:43 → PCU 08-15 05:00 → MEDS 08-16 15:39 → ENPENDDIS 08-20 11:42 → MEDS 08-20 14:36
PROVIDERS: Student in an Organized Health Care Education/Training Program; ADMIT Internal Medicine
PROC: 3E03329 Introduction of Other Anti-infective into Peripheral Vein, Percutaneous Approach (ICD-10-PCS; principal; 2023-08-15)
PROC: 0US9XZZ Reposition Uterus, External Approach (ICD-10-PCS; 2023-08-15)
PROC: 3E0DX29 Introduction of Other Anti-infective into Mouth and Pharynx, External Approach (ICD-10-PCS; 2023-08-18)
DX: A41.9 Sepsis, unspecified organism (principal); N13.6 Pyonephrosis; N81.4 Uterovaginal prolapse, unspecified; E87.6 Hypokalemia; F17.200 Nicotine dependence, unspecified, uncomplicated; R65.20 Severe sepsis without septic shock; Z60.9 Problem related to social environment, unspecified; Z88.8 Allergy status to other drugs, medicaments and biological substances; Z88.0 Allergy status to penicillin; Z88.6 Allergy status to analgesic agent; Z87.820 Personal history of traumatic brain injury; Z11.52 Encounter for screening for COVID-19
CPT/HCPCS: 0241U; 36415; 51702; 58999; 74177; 80048; 80069; 80076; 81001; 83605; 83690; 85025; 87040; 87077; 87086; 87186; 93306; 96361; 96361-59; 96374; 96375; 96375-59; 97110; 97112; 97161; 99285-25; A9270; J0692; J0696; J1650; J1885; J2185; J2405; J3010; J7030; Q9967